=== PATIENT | male | born 1930 | race Caucasian/White ===

== ENCOUNTER 2017-06-26 18:51 | Inpatient (IN) | payer MEDICARE, MEDICAID ==
--- NOTE | 2017-06-26 19:19 | ED PDOC ---
Arrival/HPI - General Chief Complaint: Shortness Of Breath Time Seen by Provider: 06/26/17 19:02 Historian: Patient - History of Present Illness Narrative History of Present Illness (Text): 06/26/17 19:17 86 year old male, with past medical history of asthma and hypertension, presents to the Emergency department complaining of shortness of breath for past few days. Patient is a poor historian aPatient denies any associated chest pain. Patient denies any fever, chills, nausea, vomiting, diarrhea, abdominal pain or any other complaints. 06/27/17 02:30 Time/Duration: < week Symptom Course: Unchanged Activities at Onset: Light Context: Home Past Medical History - Provider Review Nursing Documentation Reviewed: Yes - Infectious Disease Hx of Infectious Diseases: None - Cardiac Hx Hypertension: Yes - Pulmonary Hx Asthma: Yes - Psychiatric Hx Substance Use: No Family/Social History - Physician Review Nursing Documentation Reviewed: Yes Family/Social History: No Known Family HX Smoking Status: Former Smoker Hx Alcohol Use: No Hx Substance Use: No Allergies/Home Meds Allergies/Adverse Reactions: Allergies No Known Allergies Allergy (Verified 06/26/17 18:56) Home Medications: Home Meds Medication Instructions Recorded Confirmed Atorvastatin [Lipitor] 10 mg PO DAILY 06/26/17 06/26/17 Fluticasone/Vilanterol [Breo 1 in IH BID 06/26/17 06/26/17 Ellipta 200-25 Mcg INH] Metoprolol Tartrate [Metoprolol 25 mg PO BID 06/26/17 06/26/17 Tartrate] Montelukast [Singulair] 10 mg PO DAILY 06/26/17 06/26/17 Multivitamin/Iron/Folic Acid 1 tab PO DAILY 06/26/17 06/26/17 [Sentry Tablet] Review of Systems - Physician Review All systems were reviewed & negative as marked: Yes - Review of Systems Constitutional: Normal. absent: Fevers Eyes: Normal ENT: Normal Respiratory: SOB Cardiovascular: Normal. absent: Chest Pain Gastrointestinal: Normal. absent: Abdominal Pain, Diarrhea, Nausea, Vomiting Genitourinary Male: Normal Musculoskeletal: Normal Skin: Normal Neurological: Normal Endocrine: Normal Hemo/Lymphatic: Normal Psychiatric: Normal Physical Exam Vital Signs Reviewed: Yes Vital Signs Temp Pulse Pulse Resp BP Pulse Ox 06/26/17 23:37 98.1 F 82 18 132/70 98 06/26/17 23:02 90 20 06/26/17 20:42 90 22 120/63 96 06/26/17 19:05 30 H 06/26/17 18:52 97.6 F 86 35 H 127/68 100 Temperature: Afebrile Blood Pressure: Normal Pulse: Regular Respiratory Rate: Tachypneic Appearance: Positive for: Well-Appearing, Non-Toxic, Comfortable Pain Distress: None Mental Status: Positive for: Alert and Oriented X 3 - Systems Exam Head: Present: Atraumatic, Normocephalic Pupils: Present: PERRL Extroacular Muscles: Present: EOMI Conjunctiva: Present: Normal Mouth: Present: Moist Mucous Membranes Neck: Present: Normal Range of Motion Respiratory/Chest: Present: Decreased Breath Sounds (bilaterally and symmetrically). No: Respiratory Distress, Accessory Muscle Use Cardiovascular: Present: Regular Rate and Rhythm, Normal S1, S2. No: Murmurs Abdomen: No: Tenderness, Distention, Peritoneal Signs Back: Present: Normal Inspection Upper Extremity: Present: Normal Inspection. No: Cyanosis, Edema Lower Extremity: Present: Normal Inspection. No: Edema Neurological: Present: GCS=15, CN II-XII Intact, Speech Normal Skin: Present: Warm, Dry, Normal Color. No: Rashes Psychiatric: Present: Alert, Oriented x 3, Normal Insight, Normal Concentration Medical Decision Making ED Course and Treatment: 06/26/17 19:00 Impression: 86 year old male presents to the Emergency department for shortness of breath. Plan: -- EKG -- Labs -- Chest X-ray -- Albuterol -- Solumedrol -- Urinalysis -- Reassess and disposition Progress Notes: 06/26/17 19:00 EKG: Ordered, reviewed, and independently interpreted the EKG. Rate : 89 BPM Rhythm : NSR Interpretation : No ST-segment elevations or depressions, no T-wave inversions, normal intervals. CT Angiography Chest With Intravenous Contrast EXAM DATE/TIME: 06/26/2017 8:14 PM Dictated and Authenticated by: Laith Ramirez MD 06/26/2017 9:43 PM Eastern Time ([place] & [place]) IMPRESSION: 1. The main pulmonary trunk, right/left main pulmonary arteries, and the proximal lobar branches demonstrate no definite intraluminal filling defect to suggest pulmonary embolism. There is heterogeneous density of scattered peripheral pulmonary arterial branches limits evaluation for a peripheral pulmonary embolism, which is likely contributed by artifact. 2. Severe emphysematous changes are identified bilaterally, which are predominantly centrilobular. 3. There is a small consolidation within the right lower lobe, suggestive of atelectatic change or infiltrate. 4. Scattered lung nodules are noted above, the largest is 1.3 cm within the left lower lobe. PET/CT is recommended to exclude malignancy. 5. There is heterogenous enhancement of the left internal jugular vein, likely due to the phase of injection. Thrombosis is considered less likely. This can be confirmed with ultrasound. 6. There is a mildly enlarged precarinal lymph node measuring 1.5 x 1.2 cm. Small right hilar lymph nodes are also seen. 7. Multiple hypodense hepatic lesions are visualized. These lesions are incompletely characterized without intravenous contrast. Metastatic lesions are the diagnosis of exclusion. 8. There is mild nodular thickening of the right adrenal gland. 9. Additional CT findings described above. 06/26/17 21:50: Case discussed with medical office specialist. Dr. Rashaun epps. 06/26/17 21:55: Case discussed in detail with Dr. Rashaun Laguerre. Accepts patient to her service. - Lab Interpretations Lab Results: 06/26/17 19:18 06/26/17 19:18 Lab Results 06/26/17 19:18: Sodium 144, Chloride 102, Potassium 4.9, Carbon Dioxide 35 H, Anion Gap 12, BUN 31 H, Creatinine 1.3, Est GFR ( Amer) > 60, Est GFR ( Non-Af Amer) 52, Random Glucose 140 H, Calcium 9.7, Magnesium 2.0, Total Bilirubin 0.4, AST 57, ALT 25, Alkaline Phosphatase 59, Lactate Dehydrogenase 591, Total Creatine Kinase 76, Troponin I < 0.01, NT-Pro-B Natriuret Pep 364, Total Protein 8.0, Albumin 4.0, Globulin 4.0, Albumin/Globulin Ratio 1.0 L 06/26/17 19:18: PT 11.9, INR 1.04, APTT 26.2 06/26/17 19:18: WBC 6.7, RBC 4.67, Hgb 12.0 L, Hct 40.2 L, MCV 86.1, MCH 25.7, MCHC 29.9 L, RDW 14.1, Plt Count 249, MPV 11.0, Gran % 76.1 H, Lymph % (Auto) 13.3 L, [place] % (Auto) 9.7 H, Eos % (Auto) 0.6 L, Baso % (Auto) 0.3, Gran # 5.09 , Lymph # (Auto) 0.9 L, [place] # (Auto) 0.7 H, Eos # (Auto) 0.0, Baso # (Auto) 0.02 06/26/17 11:55: pCO2 54 H, pO2 147.0 H, HCO3 29.1 H, ABG pH 7.34 L, ABG Total CO2 30.8 H, ABG O2 Saturation 99.0 H, ABG Base Excess 2.2, ABG Potassium 4.2, Sodium 142.0, Chloride 109.0 H, Glucose 134 H, Lactate 0.8, FiO2 32.0, Arterial Blood Potassium 4.2 - RAD Interpretation Radiology Orders: 06/26/17 19:09 CHEST PORTABLE [RAD] Stat 06/26/17 20:14 ANGIO CHEST PE PROTOCOL [CT] Stat - Medication Orders Current Medication Orders: Acetaminophen (Tylenol 325mg Tab) 650 mg PO Q6H PRN PRN Reason: Fever >100.4 F Albuterol/Ipratropium (Duoneb 3 Mg/0.5 Mg (3 Ml) Ud) 3 ml IH Q2H PRN PRN Reason: Shortness of Breath Last Admin: 06/27/17 00:30 Dose: 3 ml Albuterol/Ipratropium (Duoneb 3 Mg/0.5 Mg (3 Ml) Ud) 3 ml IH [id number] GUERO Aspirin (Aspirin Chewable) 81 mg PO DAILY [facility] Atorvastatin Calcium (Lipitor) 10 mg PO DAILY [facility] Heparin Sodium (Porcine) (Heparin) 5,000 units SC Q12 GUERO PRN Reason: Protocol Sodium Chloride (Sodium Chloride 0.9%) 1,000 mls @ 80 mls/hr IV .[id number] GUERO Last Admin: 06/26/17 23:12 Dose: 80 mls/hr eMAR Start Stop Document 06/26/17 23:12 IT (Rec: 06/26/17 23:13 IT [facility] [id number]) Intravenous Solution Start Date 06/26/17 Start Time 23:12 Ceftriaxone Sodium (Rocephin 1 Gram Ivpb) 1 gm in 100 mls @ 100 mls/hr IVPB DAILY GUERO PRN Reason: Protocol Azithromycin (Zithromax 500mg In Ns) 500 mg in 250 mls @ 167 mls/hr IVPB DAILY GU[facility] PRN Reason: Protocol Methylprednisolone (Solu-Medrol) 40 mg IVP Q12 GUERO Metoprolol Tartrate (Lopressor) 25 mg PO BID GU[facility] Montelukast Sodium (Singulair) 10 mg PO DAILY [facility] Multivitamins (Thera Tab) 1 tab PO DAILY [facility] Pantoprazole Sodium (Protonix Ec Tab) 40 mg PO 0600 GUERO Discontinued Medications Albuterol/Ipratropium (Duoneb 3 Mg/0.5 Mg (3 Ml) Ud) 3 ml IH Q15M GUERO Stop: 06/26/17 19:46 Last Admin: 06/26/17 19:48 Dose: 3 ml Ceftriaxone Sodium (Rocephin 1 Gram Ivpb) 1 gm in 100 mls @ 100 mls/hr IVPB STAT STA PRN Reason: Protocol Stop: 06/26/17 22:43 Last Admin: 06/26/17 23:12 Dose: 100 mls/hr eMAR Start Stop Document 06/26/17 23:12 IT (Rec: 06/26/17 23:12 IT [facility] [id number]) Intravenous Solution Start Date 06/26/17 Start Time 23:12 End Date 06/26/17 Azithromycin (Zithromax 500mg In Ns) 500 mg in 250 mls @ 167 mls/hr IVPB STAT STA PRN Reason: Protocol Stop: 06/26/17 23:14 Last Admin: 06/26/17 23:54 Dose: Methylprednisolone (Solu-Medrol) 125 mg IVP STAT STA Stop: 06/26/17 19:10 Last Admin: 06/26/17 19:27 Dose: 125 mg IVP Administration Document 06/26/17 19:27 IT (Rec: 06/26/17 19:27 IT [facility] [id number]) Charges for Administration # of IVP Administrations 1 - Scribe Statement The provider has reviewed the documentation as recorded by the Scribe Adama Ley. All medical record entries made by the Scribe were at my direction and personally dictated by me. I have reviewed the chart and agree that the record accurately reflects my personal performance of the history, physical exam, medical decision making, and the department course for this patient. I have also personally directed, reviewed, and agree with the discharge instructions and disposition. Disposition/Present on Arrival - Present on Arrival Any Indicators Present on Arrival: No History of DVT/PE: No History of Uncontrolled Diabetes: No Urinary Catheter: No History of Decub. Ulcer: No History Surgical Site Infection Following: None - Disposition Have Diagnosis and Disposition been Completed?: Yes Diagnosis: Asthma, Left against medical advice Disposition: HOSPITALIZED Disposition Time: 20:07 Patient Problems: Current Active Problems Problem Status Onset Asthma Acute Left against medical advice Acute Condition: UNKNOWN
[2017-06-26] MEDS: Albuterol-Ipratrop 3 mg / 0.5 (3 ml) UD IH SCH ×3 (19:27→19:48)
[2017-06-26 19:37] LABS: BASO # 0.02 K/mm3 (0.0-2.0); BASO % 0.3 % (0.0-3.0); EOS % 0.6 % (1.5-5.0); GRAN # 5.09 (1.4-6.5); GRAN % 76.1 % (50.0-68.0); LYMPH # 0.9 (1.2-3.4); LYMPH % 13.3 % (22.0-35.0); MEAN CELL VOLUME 86.1 fl (80.0-105.0); MEAN CORPUSCULAR HEMOGLOBIN 25.7 pg (25.0-35.0); MEAN CORPUSCULAR HGB CONC 29.9 g/dl (31.0-37.0); MONO # 0.7 (0.1-0.6); MONO % 9.7 % (1.0-6.0); RBC 4.67 10^6/uL (3.5-6.1); RED CELL DISTRIBUTION WIDTH 14.1 % (11.5-14.5); WHITE BLOOD COUNT 6.7 10^3/ul (4.5-11.0)
[2017-06-26 19:42] LABS: CALCIUM 9.7 mg/dL (8.4-10.5); GFR AFRICAN-AMERICAN > 60; GFR NON-AFRICAN AMERICAN 52
[2017-06-26 19:48] LABS: ALT/SGPT 25 U/L (7-56); AST/SGOT 57 U/L (17-59); BLOOD UREA NITROGEN 31 mg/dL (7-21)
[2017-06-26 20:00] LABS: B-TYPE NATRIURETIC PEPTIDE 364 pg/mL (0-450); TROPONIN I < 0.01 ng/mL
[2017-06-26 20:14] LABS: INR 1.04 (0.93-1.08); PARTIAL THROMBOPLASTIN TIME 26.2 Seconds (25.1-36.5); PROTHROMBIN TIME 11.9 SECONDS (9.4-12.5)
[2017-06-26] MEDS ORDERED: Iohexol 350 MG/100 ML VIAL ONE (20:24)
--- NOTE | 2017-06-26 21:43 | CT ---
EXAM: CT Angiography Chest With Intravenous Contrast EXAM DATE/TIME: 06/26/2017 8:14 PM CLINICAL HISTORY: The patient age is 86 years old and is male; Signs and symptoms; Shortness of breath; Additional info: [facility] [place] Facility exam id and description: Ct count includes the [facility] angio chest pe protocol TECHNIQUE: Axial computed tomographic angiography images of the chest with intravenous contrast using pulmonary embolism protocol. All CT scans at this facility use one or more dose reduction techniques, viz.: automated exposure control; ma/kV adjustment per patient size (including targeted exams where dose is matched to indication; i.e. head); or iterative reconstruction technique. MIP reconstructed images were created and reviewed. Coronal and sagittal reformatted images were created and reviewed. CONTRAST: 55 mL of LEXI administered intravenously. COMPARISON: - CHEST PORTABLE 2017-06-26 19:21 FINDINGS: Pulmonary arteries: The main pulmonary trunk, right/left main pulmonary arteries, and the proximal lobar branches demonstrate no definite intraluminal filling defect to suggest pulmonary embolism. There is heterogeneous density of scattered peripheral pulmonary arterial branches limits evaluation for a peripheral pulmonary embolism, which is likely contributed by artifact. Aorta: There is atherosclerosis of the visualized aorta. There is no aneurysm or dissection of the aorta. Other veins: There is heterogenous enhancement of the left internal jugular vein, likely due to the phase of injection. Thrombosis is considered less likely. Lungs: Severe emphysematous changes are identified bilaterally, which are predominantly centrilobular. There is a small consolidation within the right lower lobe, suggestive of atelectatic change or infiltrate. Nonspecific patchy groundglass density is visualized within the lungs. There is a 2 mm nodule within the superior segment of the right lower lobe on series 3 image 48. Within the left lower lobe on series 3 image 77, there is a 5 mm nodule. There is a cluster of additional nodules within the left lower lobe, the largest measuring 1.3 cm on series 3 image 72. Pleural space: No significant effusion. No pneumothorax. Heart: No cardiomegaly. No significant pericardial effusion. No evidence of RV dysfunction. Bones/joints: Sternotomy wires are visualized. There is increased kyphosis of the thoracic spine with scoliosis. Hypertrophic degenerative changes are noted within the spine. Lymph nodes: There is a mildly enlarged precarinal lymph node measuring 1.5 x 1.2 cm. Additional scattered mediastinal lymph nodes are visualized. Small right hilar lymph nodes are also seen. Liver: Multiple hypodense hepatic lesions are visualized. These lesions are incompletely characterized without intravenous contrast. Metastatic lesions are the diagnosis of exclusion. Adrenals: There is mild nodular thickening of the right adrenal gland. Kidneys and ureters: Hypodense probable bilateral renal cysts are visualized, with parenchymal scarring in the left side. IMPRESSION: 1. The main pulmonary trunk, right/left main pulmonary arteries, and the proximal lobar branches demonstrate no definite intraluminal filling defect to suggest pulmonary embolism. There is heterogeneous density of scattered peripheral pulmonary arterial branches limits evaluation for a peripheral pulmonary embolism, which is likely contributed by artifact. 2. Severe emphysematous changes are identified bilaterally, which are predominantly centrilobular. 3. There is a small consolidation within the right lower lobe, suggestive of atelectatic change or infiltrate. 4. Scattered lung nodules are noted above, the largest is 1.3 cm within the left lower lobe. PET/CT is recommended to exclude malignancy. 5. There is heterogenous enhancement of the left internal jugular vein, likely due to the phase of injection. Thrombosis is considered less likely. This can be confirmed with ultrasound. 6. There is a mildly enlarged precarinal lymph node measuring 1.5 x 1.2 cm. Small right hilar lymph nodes are also seen. 7. Multiple hypodense hepatic lesions are visualized. These lesions are incompletely characterized without intravenous contrast. Metastatic lesions are the diagnosis of exclusion. 8. There is mild nodular thickening of the right adrenal gland. 9. Additional CT findings described above.
[2017-06-26] MEDS ORDERED: cefTRIAXone 1 gm 1 GM/100 ML BAG IVPB STA (21:44)
[2017-06-26] MEDS ORDERED: Azithromycin 500MG/NS 250ml 500 MG/250 ML BAG IVPB STA (21:45)
[2017-06-26] MEDS ORDERED: Sodium Chloride 0.9% 1,000 ML IV SCH (22:45)
--- NOTE | 2017-06-26 22:55 | CP.PCM.HP ---
<Jeremiah Hendrickson - Last Filed: 06/27/17 00:02> History of Present Illness - History of Present Illness History of Present Illness: CC: shortness of breath Pt is an 86 yo M with PMH of CVA, CAD, and asthma presents to [facility] [place] due to a one day history of worsening shortness of breath. Pt is [place] speaking, family is at bedside to provide translation. Pt states that at rest he is not short of breath, but can only walk a few steps before becoming short of breath. Pt is on 2L of oxygen at home. Pt states that he occasionally has night time symptoms of dyspnea and cough, but not daily. Pt states that over the last day the dyspnea has worsened and has had a dry cough. Pt denied any recent travel or sick contacts. Pt's last admission to a healthcare facility was about [address] [facility] for pneumonia and asthma exacerbation. Pt denied CP, n /v/d, abdominal pain, fever, chills, PRIDE, dizziness, urinary symptoms or changes in BM. 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 Medications as per MAR Present on Admission - Present on Admission Any Indicators Present on Admission: No Review of Systems - Review of Systems Review of Systems: 12 point ROS reviewed and is negative other than what is stated in HPI. Past Patient History - Infectious Disease Hx of Infectious Diseases: None - Past Social History Smoking Status: Former Smoker - CARDIAC Hx Hypertension: Yes - PULMONARY Hx Asthma: Yes - PSYCHIATRIC Hx Substance Use: No Meds Home Medications: Home Medication List Medication Instructions Recorded Confirmed Type Albuterol 0.083% [Albuterol 0.083% 2.5 mg IH Q4 PRN #20 neb 06/26/17 Rx Inhal Shanda (2.5 mg/3 ml) UD] Prednisone 50 mg PO DAILY #5 tablet 06/26/17 Rx Albuterol/Ipratropium [Duoneb 3 3 ml IH Q4 PRN 30 Days #120 neb 06/30/17 Rx mg/0.5 mg (3 ml) UD] Arformoterol [Brovana] 15 mcg IH [id number] #60 neb 06/30/17 Rx Lisinopril [Zestril] 2.5 mg PO DAILY #30 tab 06/30/17 Rx predniSONE [Prednisone] See Taper PO DAILY #5 tab 06/30/17 Rx Allergies/Adverse Reactions: Allergies Allergy/AdvReac Type Severity Reaction Status Date / Time No Known Allergies Allergy Verified 06/26/17 18:56 Physical Exam - Constitutional Appears: No Acute Distress, Cachectic - Head Exam Head Exam: NORMAL INSPECTION - Eye Exam Eye Exam: Normal appearance - ENT Exam ENT Exam: Mucous Membranes Moist - Neck Exam Neck exam: Positive for: Normal Inspection - Respiratory Exam Respiratory Exam: Decreased Breath Sounds. absent: Clear to Auscultation Bilateral, Rales, Rhonchi, Wheezes, Respiratory Distress - Cardiovascular Exam Cardiovascular Exam: Tachycardia, +S1, +S2. absent: Diastolic murmur, Gallop, Rubs, Systolic Murmur - GI/Abdominal Exam GI & Abdominal Exam: Soft. absent: Distended, Guarding, Rebound, Tenderness - Extremities Exam Extremities exam: Positive for: normal inspection - Back Exam Back exam: NORMAL INSPECTION - Neurological Exam Neurological exam: Alert, CN II-XII Intact, Oriented x3 - Psychiatric Exam Psychiatric exam: Normal Affect, Normal Mood - Skin Skin Exam: Dry, Intact, Normal Color, Warm Results - Vital Signs Recent Vital Signs: Last Vital Signs Temp 97.6 F 06/26/17 18:52 Pulse 90 06/26/17 20:42 Resp 22 06/26/17 20:42 BP 120/63 06/26/17 20:42 Pulse Ox 96 06/26/17 20:42 - Labs Result Diagrams: 06/26/17 19:18 06/26/17 19:18 Assessment & Plan - Assessment and Plan (Free Text) Assessment: 86 yo M with PMH of CVA, CAD, and asthma admitted for asthma exacerbation and possible pneumonia. Plan: 1. Asthma exacerbation - EKG showed NSR, rate 89 - Duoneb sabino and prn - Solumedrol 40 mg q12h - O2 via NC - ABG ordered - Cont singulair - Pulm consult 2. Possible community acquired pneumonia - Afebrile, no leukocytosis - CXR showed possible infiltrate RLL - Chest CT negative for PE, showed severe emphysematous changes, small consolidation in RLL possible atelectasis vs infectious, lung nodule 1.3 cm in left lower lobe, and 1.5x1.2 cm precarinal lymph node - Procal ordered - Due to chronic steroids, immunocompromised workup ordered Strep pneumo antigen, CMV AB, cryptococcus, histoplasma, HHV6, legionella ESR, CRP, LDH - Cont ceftriaxone and azithromycin 3. CAD - Echo ordered - Cont ASA, Lipitor, and Lopressor 4. Prerenal nephropathy - Likely 2/2 dehydration - NS at 80 cc/hr - Can increase maintenance fluids pending echo GI/DVT PPx - Protonix - Heparin Pt seen and discussed in detail with Dr. Laguerre. Lucho Hendrickson, PGY1 <Otilia Laguerre - Last Filed: 07/01/17 20:04> Results - Vital Signs Recent Vital Signs: Last Vital Signs Temp 98.6 F 06/30/17 12:00 Pulse 93 H 06/30/17 12:00 Resp 20 06/30/17 12:00 BP 129/59 L 06/30/17 12:00 Pulse Ox 97 06/30/17 10:12 - Labs Result Diagrams: 06/30/17 05:30 06/30/17 05:30 Labs: Laboratory Results - last 24 hr 06/27/17 06/27/17 06:30 06:30 Cryptococcus Ab <1:2 Herpesvirus 6 IgG Ab 1:20 H Herpesvirus 6 IgM Ab <1:20 Herpesvirus 6 Interp Past infection
[2017-06-27] MEDS: Albuterol-Ipratrop 3 mg / 0.5 (3 ml) UD IH PRN ×2 (00:30→11:15)
[2017-06-27 00:37] LABS: ARTERIAL BLOOD GAS HCO3 29.1 mmol/L (21-28); ARTERIAL BLOOD GAS PCO2 54 mm/Hg (35-45); ARTERIAL BLOOD GAS PH 7.34 (7.35-7.45); ARTERIAL BLOOD GAS TCO2 30.8 mmol.L (22-28)
[2017-06-27 02:19] LABS: PH,URINE 5.5 (4.7-8.0); URINE BILIRUBIN NEGATIVE (NEGATIVE); URINE BLOOD LARGE (NEGATIVE); URINE GLUCOSE (UA) NEGATIVE (NEGATIVE); URINE LEUKOCYTE ESTERASE NEGATIVE Leu/uL (NEGATIVE); URINE PROTEIN 100 mg/dL (<30 mg/dL); URINE UROBILINOGEN 0.2 E.U./dL (<1 E.U./dL)
[2017-06-27 02:21] LABS: URINE APPEARANCE SL CLOUDY (CLEAR); URINE COLOR YELLOW (YELLOW)
[2017-06-27] MEDS: Albuterol-Ipratrop 3 mg / 0.5 (3 ml) UD IH SCH ×4 (02:45→19:02)
[2017-06-27 03:12] LABS: URINE BACTERIA FEW (NEG); URINE EPITHELIAL CELLS 0 - 2 /hpf (0-5); URINE RBC TNTC /hpf (0-2)
[2017-06-27] MEDS: Pantoprazole 40 mg EC Tab PO SCH (05:26)
[2017-06-27 07:21] LABS: HEMOGLOBIN 10.9 g/dL (14.0-18.0); MEAN CELL VOLUME 85.3 fl (80.0-105.0); MEAN CORPUSCULAR HEMOGLOBIN 25.8 pg (25.0-35.0); MEAN CORPUSCULAR HGB CONC 30.2 g/dl (31.0-37.0); MEAN PLATELET VOLUME 11.1 fl (7.0-11.0); RBC 4.23 10^6/uL (3.5-6.1); WHITE BLOOD COUNT 9.9 10^3/ul (4.5-11.0)
[2017-06-27 07:33] LABS: ALBUMIN 3.6 g/dL (3.0-4.8); ALT/SGPT 30 U/L (7-56); AST/SGOT 31 U/L (17-59); BLOOD UREA NITROGEN 31 mg/dL (7-21); CALCIUM 9.2 mg/dL (8.4-10.5); GFR AFRICAN-AMERICAN > 60; GFR NON-AFRICAN AMERICAN 57
--- NOTE | 2017-06-27 08:38 | RAD ---
HISTORY: sob COMPARISON: No prior. FINDINGS: LUNGS: Interstitial changes are seen at both lung bases. PLEURA: No significant pleural effusion identified, no pneumothorax apparent. CARDIOVASCULAR: Normal. OSSEOUS STRUCTURES: Sternal wires VISUALIZED UPPER ABDOMEN: Normal. OTHER FINDINGS: None. IMPRESSION: No active disease.
[2017-06-27] MEDS ORDERED: cefTRIAXone 1 gm 1 GM/100 ML BAG IVPB SCH (10:00)
[2017-06-27] MEDS: Azithromycin 500MG/NS 250ml 500 MG/250 ML BAG IVPB SCH (10:11)
[2017-06-27] MEDS: Multivitamin Therapeutic Tab PO SCH (10:11)
[2017-06-27] MEDS: MethylPREDNISolone 40 mg Vial IVP SCH ×2 (10:11→21:24)
--- NOTE | 2017-06-27 15:57 | CARD ---
APPROVED REPORT EXAM: Two-dimensional and M-mode echocardiogram with Doppler and color Doppler. INDICATION Evaluate LV function 2D DIMENSIONS Left Atrium (2D)2.6 (1.6-4.0cm)IVSd0.8 (0.7-1.1cm) Aortic Root (2D)2.7 (2.0-3.7cm)LVDd3.1 (3.9-5.9cm) LVOT Diameter1.7 (1.8-2.4cm)PWd0.8 (0.7-1.1cm) LVDs1.8 (2.5-4.0cm)FS (%) 40.9 % LVEF (%)73.2 (>50%) Aortic Valve AoV Peak Xsynawsg421.0cm/sAoV VTI39.3cmAO Peak GR.20mmHg LVOT Peak Utkpudef735.0cm/sLVOT VTI22.30cmAO Mean GR.11mmHg HARSH (VMAX)1.17kt9PMB (VTI)1.29cm2 Mitral Valve MV E Rkohskxu50.7cm/sMV A Ubsrtnva987.0cm/sE/A ratio0.5 TDI Lateral E' Peak V7.31cm/sMedial E' Peak V6.53cm/sE/Lateral E'11.3 E/Medial E'12.7 Tricuspid Valve TR Peak Ljtltgjs313sz/sRAP NGIPFNMD6fmCuIN Peak Gr.32mmHg [id number] LEFT VENTRICLE The left ventricle is normal size. There is normal left ventricular wall thickness. The left ventricular ejection fraction is within the normal range. Mild septal hypokinesis Transmitral Doppler flow pattern is Grade I-abnormal relaxation pattern. RIGHT VENTRICLE The right ventricle is normal size. There is normal right ventricular wall thickness. The right ventricular systolic function is normal. ATRIA The left atrium size is normal. The right atrium size is normal. AORTIC VALVE The aortic valve is moderately sclerotic. There is trace valvular aortic stenosis. MITRAL VALVE The mitral valve is mildly thickened. There is no mitral valve regurgitation noted. There is no mitral valve stenosis. TRICUSPID VALVE There is mild pulmonary hypertension. GREAT VESSELS The aortic root is normal in size. <Conclusion> The left ventricle is normal size. There is normal left ventricular wall thickness. The left ventricular ejection fraction is within the normal range. Mild septal hypokinesis Transmitral Doppler flow pattern is Grade I-abnormal relaxation pattern. The aortic valve is moderately sclerotic. There is mild pulmonary hypertension.
--- NOTE | 2017-06-27 16:08 | CARD ---
APPROVED REPORT EKG Measurement Heart [id number] <Conclusion> Normal sinus rhythm Low voltage QRS Borderline ECG
[2017-06-28] MEDS: Albuterol-Ipratrop 3 mg / 0.5 (3 ml) UD IH SCH ×6 (01:10→23:42)
[2017-06-28] MEDS: Albuterol-Ipratrop 3 mg / 0.5 (3 ml) UD IH PRN (05:10)
[2017-06-28] MEDS: Pantoprazole 40 mg EC Tab PO SCH (05:10)
[2017-06-28 07:38] LABS: HEMOGLOBIN 10.5 g/dL (14.0-18.0); MEAN CORPUSCULAR HEMOGLOBIN 25.2 pg (25.0-35.0); MEAN PLATELET VOLUME 11.2 fl (7.0-11.0); RBC 4.16 10^6/uL (3.5-6.1); RED CELL DISTRIBUTION WIDTH 14.4 % (11.5-14.5); WHITE BLOOD COUNT 18.1 10^3/ul (4.5-11.0)
[2017-06-28 08:00] LABS: ALBUMIN 3.7 g/dL (3.0-4.8); ALT/SGPT 38 U/L (7-56); AST/SGOT 40 U/L (17-59); BLOOD UREA NITROGEN 35 mg/dL (7-21); CALCIUM 9.2 mg/dL (8.4-10.5); GFR AFRICAN-AMERICAN > 60; GFR NON-AFRICAN AMERICAN 57
[2017-06-28] MEDS ORDERED: Albuterol-Ipratrop 3 mg / 0.5 (3 ml) UD IH SCH (09:15)
[2017-06-28] MEDS ORDERED: Albuterol-Ipratrop 3 mg / 0.5 (3 ml) UD IH STA (09:18)
[2017-06-28] MEDS: Multivitamin Therapeutic Tab PO SCH (09:30)
[2017-06-28] MEDS: Azithromycin 500MG/NS 250ml 500 MG/250 ML BAG IVPB SCH (09:31)
[2017-06-28] MEDS: MethylPREDNISolone 40 mg Vial IVP SCH ×2 (09:31→17:53)
[2017-06-28] MEDS ORDERED: MethylPREDNISolone 40 mg Vial IVP SCH ×2 (10:00)
[2017-06-28 11:34] LABS: ARTERIAL BLOOD GAS HCO3 29.1 mmol/L (21-28); ARTERIAL BLOOD GAS HEMOGLOBIN 9.8 g/dL (11.7-17.4); ARTERIAL BLOOD GAS O2 CAPACITY 13.7 mL/dl (16-24); ARTERIAL BLOOD GAS O2 CONTENT 13.6 ML/dl (15-23); ARTERIAL BLOOD GAS O2 SAT 99.3 % (95-98); ARTERIAL BLOOD GAS PCO2 62 mm/Hg (35-45); ARTERIAL BLOOD GAS PH 7.28 (7.35-7.45)
--- NOTE | 2017-06-28 12:08 | CP.PCM.PN ---
<Jonathan Aguillon - Last Filed: 06/28/17 14:38> Subjective - Date & Time of Evaluation Date of Evaluation: 06/28/17 Time of Evaluation: 09:10 - Subjective Subjective: Jonathan Aguillon DO, PGY-1: Hospitalist Service Patient seen and examined at bedside. Video die cast supervisor service utilized. Patient was in apparent respiratory distress at the time of evaluation. Nurse reports he had just passed a large bowel movement and was straining. Patient can barely get one or two word across. Stat Duoneb and ABG ordered. Objective - Vital Signs/Intake and Output Vital Signs (last 24 hours): Temp Pulse Resp BP Pulse Ox 98.1 F 110 H 19 133/69 97 06/28/17 06:00 06/28/17 09:30 06/28/17 06:00 06/28/17 09:30 06/28/17 06:00 Intake and Output: 06/28/17 06/28/17 06:59 18:59 Intake Total 240 Output Total 300 Balance -60 - Medications Medications: Current Medications Acetaminophen (Tylenol 325mg Tab) 650 mg PO Q6H PRN PRN Reason: Fever >100.4 F Albuterol/Ipratropium (Duoneb 3 Mg/0.5 Mg (3 Ml) Ud) 3 ml IH Q2H PRN PRN Reason: Shortness of Breath Last Admin: 06/28/17 05:10 Dose: 3 ml Albuterol/Ipratropium (Duoneb 3 Mg/0.5 Mg (3 Ml) Ud) 3 ml IH [id number] [facility] Last Admin: 06/28/17 11:20 Dose: 3 ml Aspirin (Aspirin Chewable) 81 mg PO DAILY [facility] Last Admin: 06/28/17 09:30 Dose: 81 mg Atorvastatin Calcium (Lipitor) 10 mg PO DAILY [facility] Last Admin: 06/28/17 09:30 Dose: 10 mg Heparin Sodium (Porcine) (Heparin) 5,000 units SC Q12 [facility] PRN Reason: Protocol Last Admin: 06/28/17 09:30 Dose: 5,000 units Azithromycin (Zithromax 500mg In Ns) 500 mg in 250 mls @ 167 mls/hr IVPB DAILY [facility] PRN Reason: Protocol Last Admin: 06/28/17 09:31 Dose: 167 mls/hr Methylprednisolone (Solu-Medrol) 40 mg IVP BID [facility] Last Admin: 06/28/17 09:31 Dose: 40 mg Metoprolol Tartrate (Lopressor) 25 mg PO BID [facility] Last Admin: 06/28/17 09:30 Dose: 25 mg Montelukast Sodium (Singulair) 10 mg PO DAILY [facility] Last Admin: 06/28/17 09:30 Dose: 10 mg Multivitamins (Thera Tab) 1 tab PO DAILY [facility] Last Admin: 06/28/17 09:30 Dose: 1 tab Pantoprazole Sodium (Protonix Ec Tab) 40 mg PO 0600 [facility] Last Admin: 06/28/17 05:10 Dose: 40 mg - Labs Labs: 06/28/17 07:31 06/28/17 07:31 PT 11.9 SECONDS (9.4-12.5) 06/26/17 19:18 INR 1.04 (0.93-1.08) 06/26/17 19:18 APTT 26.2 Seconds (25.1-36.5) 06/26/17 19:18 - Constitutional Appears: In Acute Distress, Cachectic - Head Exam Head Exam: ATRAUMATIC, NORMOCEPHALIC - Eye Exam Eye Exam: EOMI, Normal appearance - ENT Exam ENT Exam: Mucous Membranes Dry, Normal Oropharynx - Neck Exam Neck Exam: Normal Inspection - Respiratory Exam Respiratory Exam: Accessory Muscle Use, Prolonged Expiratory Phase, Respiratory Distress - Cardiovascular Exam Cardiovascular Exam: Tachycardia, +S1, +S2 - GI/Abdominal Exam GI & Abdominal Exam: Soft, Normal Bowel Sounds - Extremities Exam Extremities Exam: Normal Inspection. absent: Calf Tenderness - Back Exam Back Exam: NORMAL INSPECTION. absent: CVA tenderness (L), CVA tenderness (R) - Neurological Exam Neurological Exam: Alert, Awake - Psychiatric Exam Psychiatric exam: Normal Affect, Normal Mood - Skin Skin Exam: Normal Color Assessment and Plan - Assessment and Plan (Free Text) Assessment: 86 year old male with past medical history significant for advanced age, COPD and CAD who presented with worsening dyspnea. Plan: COPD exacerbation with hypercapnia and muscle wasting - Duonebs q4h [facility] q2h PRN - Solumedrol 40 mg q12h - BIPAP with target oxygen saturation between 88-92% - Ceftriaxone discontinued given no evidence of pneumonia, procalcitonin low, and patient afebrile - Azithromycin 500 mg daily - Ensure clear supplement 3 daily - urine legionella negative - CT scan of chest was concerning for possible cancer with unknown primary. Discussed findings with family who did not wish to pursue any work up at this time in regards to possible cancer given patient's poor functional status. - Pulmonology consulted, would re-consult on Thursday - Multivitamin - Singulair 10 mg - TATIANNA index indicates poor prognosis 2) CAD - Echocardiogram showed LVEF of 74%, mild septal hypokinesis, and mild pulmonary hypertension - Cont ASA, Lipitor, and Lopressor 3) GI/DVT prophylaxis - Protonix - Heparin <Rory Jenkins - Last Filed: 06/28/17 15:58> Objective - Vital Signs/Intake and Output Vital Signs (last 24 hours): Temp Pulse Resp BP Pulse Ox 98 F 98 H 19 142/76 97 06/28/17 12:00 06/28/17 14:00 06/28/17 12:00 06/28/17 12:00 06/28/17 06:00 Intake and Output: 06/28/17 06/28/17 06:59 18:59 Intake Total 240 610 Output Total 300 Balance -60 610 - Medications Medications: Current Medications Acetaminophen (Tylenol 325mg Tab) 650 mg PO Q6H PRN PRN Reason: Fever >100.4 F Albuterol/Ipratropium (Duoneb 3 Mg/0.5 Mg (3 Ml) Ud) 3 ml IH Q2H PRN PRN Reason: Shortness of Breath Last Admin: 06/28/17 05:10 Dose: 3 ml Albuterol/Ipratropium (Duoneb 3 Mg/0.5 Mg (3 Ml) Ud) 3 ml IH [id number] [facility] Last Admin: 06/28/17 11:20 Dose: 3 ml Aspirin (Aspirin Chewable) 81 mg PO DAILY [facility] Last Admin: 06/28/17 09:30 Dose: 81 mg Atorvastatin Calcium (Lipitor) 10 mg PO DAILY [facility] Last Admin: 06/28/17 09:30 Dose: 10 mg Heparin Sodium (Porcine) (Heparin) 5,000 units SC Q12 [facility] PRN Reason: Protocol Last Admin: 06/28/17 09:30 Dose: 5,000 units Azithromycin (Zithromax 500mg In Ns) 500 mg in 250 mls @ 167 mls/hr IVPB DAILY [facility] PRN Reason: Protocol Last Admin: 06/28/17 09:31 Dose: 167 mls/hr Methylprednisolone (Solu-Medrol) 40 mg IVP BID [facility] Last Admin: 06/28/17 09:31 Dose: 40 mg Metoprolol Tartrate (Lopressor) 25 mg PO BID [facility] Last Admin: 06/28/17 09:30 Dose: 25 mg Montelukast Sodium (Singulair) 10 mg PO DAILY [facility] Last Admin: 06/28/17 09:30 Dose: 10 mg Multivitamins (Thera Tab) 1 tab PO DAILY [facility] Last Admin: 06/28/17 09:30 Dose: 1 tab Pantoprazole Sodium (Protonix Ec Tab) 40 mg PO 0600 [facility] Last Admin: 06/28/17 05:10 Dose: 40 mg - Labs Labs: 06/28/17 07:31 06/28/17 07:31 PT 11.9 SECONDS (9.4-12.5) 06/26/17 19:18 INR 1.04 (0.93-1.08) 06/26/17 19:18 APTT 26.2 Seconds (25.1-36.5) 06/26/17 19:18 Attending/Attestation - Attestation I have personally seen and examined this patient.: Yes I have fully participated in the care of the patient.: Yes I have reviewed all pertinent clinical information, including history, physical exam and plan: Yes Notes (Text): 06/28/17 15:54 Medical record note made by the resident after discussion with my direction and input after the patient was personally seen and examined by me. I have reviewed the chart and agree that the record accurately reflects by personal performance of the history, physical exam, data review, and medical decision-making, in the course for the patient. I have also personally directed the plan of care. 86 yrs male with PMH of CVA, CAD, and COPD is admitted with hypercapnic Resp Failure due COPD exacerbation,patient is dyspnic Patient ABG today showed Resp acidosis with hypercapnia started on BIPAP ,We will continue neb/Steroid and antibiotics, Pulmonary is following. Patient has multiple liver lesion, has poor performance status. CT Scan finding were discussed with family, no plan for any work up as patient performance status is poor.This was discussed in detail with patient Prognosis is guarded.
[2017-06-29] MEDS ORDERED: Metoprolol 1 mg/ml Inj IVP STA (01:55)
[2017-06-29] MEDS ORDERED: MethylPREDNISolone 40 mg Vial IVP STA (01:59)
[2017-06-29 02:13] LABS: MEAN CELL VOLUME 88.4 fl (80.0-105.0); MEAN CORPUSCULAR HEMOGLOBIN 25.6 pg (25.0-35.0); MEAN CORPUSCULAR HGB CONC 28.9 g/dl (31.0-37.0); MEAN PLATELET VOLUME 10.1 fl (7.0-11.0); RBC 4.3 10^6/uL (3.5-6.1); RED CELL DISTRIBUTION WIDTH 14.6 % (11.5-14.5); WHITE BLOOD COUNT 17.9 10^3/ul (4.5-11.0)
[2017-06-29 02:16] LABS: ARTERIAL BLOOD GAS HCO3 30.5 mmol/L (21-28); ARTERIAL BLOOD GAS HEMOGLOBIN 11.4 g/dL (11.7-17.4); ARTERIAL BLOOD GAS O2 SAT 99.8 % (95-98); ARTERIAL BLOOD GAS PCO2 68 mm/Hg (35-45); ARTERIAL BLOOD GAS PH 7.26 (7.35-7.45); ARTERIAL BLOOD GAS TCO2 32.6 mmol.L (22-28)
--- NOTE | 2017-06-29 02:16 | PCM.RRT ---
<Naif Carrillo - Last Filed: 06/29/17 02:17> GRAPHICS SPECIALIST Nurse Assessment - Situation Date: 06/29/17 Time GRAPHICS SPECIALIST was called: 01:50 GRAPHICS SPECIALIST Responder Arrival Time: 01:53 GRAPHICS SPECIALIST Location:: [address] [place] [address] Room Number: 263-1 GRAPHICS SPECIALIST Reason for Call: Respiratory Distress GRAPHICS SPECIALIST Called By: RN - IV IV Inserted during GRAPHICS SPECIALIST?: No - Respiratory Oxygen Delivery Method: BiPAP @% Received Nebulizer Treatments:: Yes Was the Patient Ventilated with Bag/Mask 100% O2?: No (Pt is on BiPAP) Secretions Suctioned?: No Was the Patient Intubated?: No Was the Patient Placed on a Ventilator?: No - Medication Medications Administered During GRAPHICS SPECIALIST: metoprolol 5 mg IVP. Solumedrol 40 mg IVP - Diagnostic Test Ordered EKG: Yes Chest X-Ray: Yes CT Scan: No - Stat Labs Ordered GRAPHICS SPECIALIST Stat Labs Ordered: TROPONIN, ABG CPR started during GRAPHICS SPECIALIST?: No - Vital Signs Vital Sign: Rapid Response Vital Sign Blood Pressure 211/94 Pulse Rate 144 Respiratory Rate 40 Oxygen Saturation 80 - Time GRAPHICS SPECIALIST Ended Time GRAPHICS SPECIALIST Ended: 02:05 - Vital Signs at end of GRAPHICS SPECIALIST Vital Signs at end of GRAPHICS SPECIALIST: Rapid Response End Vital Sign Blood Pressure 159/77 Pulse Rate 105 Respiratory Rate 30 O2 Sat by Pulse Oximetry 99 - Recommendations Notifications: Family or Designated Caregiver I.Reason for GRAPHICS SPECIALIST - A) Acute Change in Patient: Subjective: Rapid response called for respiratory distress. Patient stated he was having shortness of breath. Patient denied chest pain or pain with breathing. Initial vital signs displayed a BP of 211/94, along with a heart rate in the 140's. Pulse ox was also noted to be in the low 80's. Patient was immediately placed on BIPAP. Patient respiratory distress lessened once on BIPAP. Patient was also given Metoprolol 5 mg IV and Solumedrol 40 mg IV. ABG, Troponin, EKG, chest x- ray, along with with AM labs drawn at this time. After several minutes, patient noted complete resolution of respiratory distress on BIPAP. Repeat BP was 140/60 , performed manually by me. Heart rate went down to baseline at 100. Pulse Ox was 96%. - Neurological Status (Select all that apply): Alert, Responsive, Oriented, Verbal, Follows Commands - Respiratory Oxygen Delivery Method: BiPAP @% - Constitutional Appears: Non-toxic - Head Head Exam: ATRAUMATIC, NORMAL INSPECTION, NORMOCEPHALIC - Respiratory Exam Respiratory Exam: Wheezes (Mild b/l wheezing). absent: Decreased Breath Sounds , Rales, Rhonchi - Cardiovascular Exam Cardiovascular Exam: Tachycardia, REGULAR RHYTHM - GI/Abdominal Exam GI & Abdominal Exam: Soft, Normal Bowel Sounds. absent: Tenderness - Neurological Exam Neurological Exam: Alert, Awake, Oriented x3 - Extremities Exam Extremities Exam: Normal Inspection Plan - Assessment of Findings&Treatment Plan 86 year old male with past medical history significant for COPD and CAD s/p CABG who presenting with respiratory distress secondary to COPD exacerbation. ABG demonstrates respiratory acidosis with metabolic compensation, consistent with previous ABG performed this morning. EKG demonstrates sinus tachycardia. Plan: Follow up CBC, CMP, Troponin Continue BIPAP Continue Solumedrol Duoneb treatments prn Primary care team notified Monitor respiratory status for worsening Gerardo PGY-2 <Rafael Zhang - Last Filed: 06/29/17 03:49> GRAPHICS SPECIALIST Nurse Assessment - Vital Signs Vital Sign: Rapid Response Vital Sign Blood Pressure 211/94 Pulse Rate 144 Respiratory Rate 40 Oxygen Saturation 80 - Vital Signs at end of GRAPHICS SPECIALIST Vital Signs at end of GRAPHICS SPECIALIST: Rapid Response End Vital Sign Blood Pressure 159/77 Pulse Rate 105 Respiratory Rate 30 O2 Sat by Pulse Oximetry 99 Attending/Attestation - Attestation I have personally seen and examined this patient.: Yes I have fully participated in the care of the patient.: Yes I have reviewed all pertinent clinical information, including history, physical exam and plan: Yes Notes (Text): 06/29/17 03:46 Agree with 's note. GRAPHICS SPECIALIST was called for elevated blood pressure of 211/94, HR of 144/min and pulse ox 83% on BiPAP 10/4 , 28%. Patient complained of dyspnea. CRITICAL CARE TIME SPENT: 30 minutes.
[2017-06-29 02:35] LABS: TROPONIN I < 0.01 ng/mL
[2017-06-29 03:49] LABS: ALBUMIN 3.7 g/dL (3.0-4.8); ALT/SGPT 52 U/L (7-56); AST/SGOT 84 U/L (17-59); BLOOD UREA NITROGEN 39 mg/dL (7-21); CALCIUM 9.1 mg/dL (8.4-10.5); GFR AFRICAN-AMERICAN > 60; GFR NON-AFRICAN AMERICAN 52
[2017-06-29] MEDS: Albuterol-Ipratrop 3 mg / 0.5 (3 ml) UD IH SCH ×7 (04:30→23:06)
[2017-06-29] MEDS: Pantoprazole 40 mg EC Tab PO SCH (05:15)
--- NOTE | 2017-06-29 07:45 | CP.PCM.PN ---
<Gillian Courtney - Last Filed: 06/29/17 16:21> Subjective - Date & Time of Evaluation Date of Evaluation: 06/29/17 Time of Evaluation: 07:42 - Subjective Subjective: Internal Medicine Progress Note: Patient seen and examined at bedside. Rapid response was called overnight for respiratory distress. Patient was given IV solumedrol, IV lopressor and placed on Bipap. This morning patient states that breathing is improved. Complaining that he wants water. Objective - Vital Signs/Intake and Output Vital Signs (last 24 hours): Temp Pulse Resp BP Pulse Ox 98.1 F 99 H 19 158/75 H 95 06/29/17 06:00 06/29/17 06:00 06/29/17 06:00 06/29/17 06:00 06/29/17 06:00 Intake and Output: 06/29/17 06/29/17 06:59 18:59 Intake Total 360 Output Total 100 Balance 260 - Medications Medications: Current Medications Acetaminophen (Tylenol 325mg Tab) 650 mg PO Q6H PRN PRN Reason: Fever >100.4 F Albuterol/Ipratropium (Duoneb 3 Mg/0.5 Mg (3 Ml) Ud) 3 ml IH Q2H PRN PRN Reason: Shortness of Breath Last Admin: 06/28/17 05:10 Dose: 3 ml Albuterol/Ipratropium (Duoneb 3 Mg/0.5 Mg (3 Ml) Ud) 3 ml IH [id number] [facility] Last Admin: 06/29/17 04:30 Dose: 3 ml Aspirin (Aspirin Chewable) 81 mg PO DAILY [facility] Last Admin: 06/28/17 09:30 Dose: 81 mg Atorvastatin Calcium (Lipitor) 10 mg PO DAILY [facility] Last Admin: 06/28/17 09:30 Dose: 10 mg Heparin Sodium (Porcine) (Heparin) 5,000 units SC Q12 [facility] PRN Reason: Protocol Last Admin: 06/28/17 22:03 Dose: 5,000 units Azithromycin (Zithromax 500mg In Ns) 500 mg in 250 mls @ 167 mls/hr IVPB DAILY [facility] PRN Reason: Protocol Last Admin: 06/28/17 09:31 Dose: 167 mls/hr Methylprednisolone (Solu-Medrol) 40 mg IVP BID [facility] Last Admin: 06/28/17 17:53 Dose: 40 mg Metoprolol Tartrate (Lopressor) 25 mg PO BID [facility] Last Admin: 06/28/17 17:33 Dose: 25 mg Montelukast Sodium (Singulair) 10 mg PO DAILY [facility] Last Admin: 06/28/17 09:30 Dose: 10 mg Multivitamins (Thera Tab) 1 tab PO DAILY [facility] Last Admin: 06/28/17 09:30 Dose: 1 tab Pantoprazole Sodium (Protonix Ec Tab) 40 mg PO 0600 [facility] Last Admin: 06/29/17 05:15 Dose: 40 mg - Labs Labs: 06/29/17 02:05 06/29/17 02:05 PT 11.9 SECONDS (9.4-12.5) 06/26/17 19:18 INR 1.04 (0.93-1.08) 06/26/17 19:18 APTT 26.2 Seconds (25.1-36.5) 06/26/17 19:18 - Constitutional Appears: Non-toxic, No Acute Distress - Head Exam Head Exam: ATRAUMATIC, NORMAL INSPECTION, NORMOCEPHALIC - Eye Exam Eye Exam: EOMI, Normal appearance - ENT Exam ENT Exam: Mucous Membranes Dry - Respiratory Exam Respiratory Exam: Decreased Breath Sounds. absent: Rales, Rhonchi Additional comments: On BIPAP - Cardiovascular Exam Cardiovascular Exam: Tachycardia, +S1, +S2 - GI/Abdominal Exam GI & Abdominal Exam: Soft, Normal Bowel Sounds. absent: Guarding, Rigid, Tenderness - Extremities Exam Extremities Exam: Normal Inspection - Neurological Exam Neurological Exam: Alert, Awake, Oriented x3 - Psychiatric Exam Psychiatric exam: Normal Affect, Normal Mood - Skin Skin Exam: Dry, Normal Color, Warm Assessment and Plan - Assessment and Plan (Free Text) Assessment: 86 year old male with past medical history significant for advanced age, COPD and CAD who presented with worsening dyspnea. Rapid response was called last night 06/29/17 for respiratory distress. Patient was placed on BIPAP, given STAT dose of IV solumedrol and IV lopressor. CXR was negative. Plan: 1) COPD exacerbation with hypercapnia and muscle wasting - Transition to AL this morning - Continue BIPAP at night - Repeat ABG ordered for today - Continue Duonebs q4h [facility], Duonebs q2h PRN - Continue Solumedrol 40 mg q12h (will start prednisone taper tomorrow) - Continue Singulair 10 mg - CXR 06/29/17: No active disease - Anticiotics: Azithromycin 500 mg daily; Rocephin discontinued (low procal) - Urine legionella negative, CMV IgG positive > 10.00 - Aspergillis, Cryptococcus, HHV6, S pneumonia pending - Continue Ensure clear supplement 3 daily - Pulmonary on consult, will f/u recommendations - PT eval ordered, f/u recommendations 2) Lung Nodule - CT Chest showed severe emphysematous changes, small consolidation in RLL possible atelectasis vs infectious. Lung nodule 1.3cm in the left lower lobe and 1.5x1.2cm precarinal lymph node; PET scan was recommended for further evaluation - Per prior documentation, findings were discussed with the family who does not wish to pursue any workup at this time - Pulmonary on consult, will f/u recommendations - Palliative care on consult,for advance care planning, after discussion with the family, patient to be made DNR/DNI 3) Leukocytosis - WBC 17.9 today, afebrile - Likely elevated 2/2 to steroid use - Blood cx, Urine cx negative, Procal low - Will continue to monitor 4) History of CAD - Echocardiogram showed LVEF of 74%, mild septal hypokinesis, and mild pulmonary hypertension - Cont ASA, Lipitor, and Lopressor 5) Elevated BP -Patient on Lopressor, caution in light of COPD exacerbation 2/2 broncospasm -Start Lisinopril 2.5mg PO daily 6) Hypernatremia -Sodium 151 today, mildly elevated -Will continue to monitor at this time GI/DVT prophylaxis - Protonix 40mg PO daily - Heparin 5000 U Q12H Plan discussed with Dr Montez <Waldemar Montez - Last Filed: 06/29/17 16:35> Objective - Vital Signs/Intake and Output Vital Signs (last 24 hours): Temp Pulse Resp BP Pulse Ox 97.5 F L 89 18 133/68 95 06/29/17 12:00 06/29/17 13:45 06/29/17 12:00 06/29/17 13:45 06/29/17 06:00 Intake and Output: 06/29/17 06/29/17 06:59 18:59 Intake Total 360 600 Output Total 100 200 Balance 260 400 - Medications Medications: Current Medications Acetaminophen (Tylenol 325mg Tab) 650 mg PO Q6H PRN PRN Reason: Fever >100.4 F Albuterol/Ipratropium (Duoneb 3 Mg/0.5 Mg (3 Ml) Ud) 3 ml IH Q2H PRN PRN Reason: Shortness of Breath Last Admin: 06/28/17 05:10 Dose: 3 ml Albuterol/Ipratropium (Duoneb 3 Mg/0.5 Mg (3 Ml) Ud) 3 ml IH [id number] [facility] Last Admin: 06/29/17 14:20 Dose: 3 ml Aspirin (Aspirin Chewable) 81 mg PO DAILY [facility] Last Admin: 06/29/17 09:08 Dose: 81 mg Atorvastatin Calcium (Lipitor) 10 mg PO DAILY [facility] Last Admin: 06/29/17 09:07 Dose: 10 mg Heparin Sodium (Porcine) (Heparin) 5,000 units SC Q12 [facility] PRN Reason: Protocol Last Admin: 06/29/17 09:07 Dose: 5,000 units Azithromycin (Zithromax 500mg In Ns) 500 mg in 250 mls @ 167 mls/hr IVPB DAILY [facility] PRN Reason: Protocol Last Admin: 06/29/17 09:07 Dose: 167 mls/hr Lisinopril (Zestril) 2.5 mg PO DAILY [facility] Last Admin: 06/29/17 13:45 Dose: 2.5 mg Methylprednisolone (Solu-Medrol) 40 mg IVP BID [facility] Last Admin: 06/29/17 09:07 Dose: 40 mg Metoprolol Tartrate (Lopressor) 25 mg PO BID [facility] Last Admin: 06/29/17 09:08 Dose: 25 mg Montelukast Sodium (Singulair) 10 mg PO DAILY [facility] Last Admin: 06/29/17 09:07 Dose: 10 mg Multivitamins (Thera Tab) 1 tab PO DAILY [facility] Last Admin: 06/29/17 09:08 Dose: 1 tab Pantoprazole Sodium (Protonix Ec Tab) 40 mg PO 0600 [facility] Last Admin: 06/29/17 05:15 Dose: 40 mg - Labs Labs: 06/29/17 02:05 06/29/17 02:05 PT 11.9 SECONDS (9.4-12.5) 06/26/17 19:18 INR 1.04 (0.93-1.08) 06/26/17 19:18 APTT 26.2 Seconds (25.1-36.5) 06/26/17 19:18 Attending/Attestation - Attestation I have personally seen and examined this patient.: Yes I have fully participated in the care of the patient.: Yes I have reviewed all pertinent clinical information, including history, physical exam and plan: Yes Notes (Text): 06/29/17 16:32 86 year old male with past medical history of CVA, CAD and COPD who presented with respiratory distress secondary to COPD exacerbation. Continue with duonebs and iv steroids taper. Continue with bipap at night. Continue with supplemental oxygen as needed. CT lung and liver findings discussed with family who did not wish for addition workup. Pulmonary and palliative care consultations were appreciated. Family is at bedside and questions were answered. Waldemar Montez MD Hospitalist.
[2017-06-29] MEDS: MethylPREDNISolone 40 mg Vial IVP SCH ×2 (09:07→18:43)
[2017-06-29] MEDS: Azithromycin 500MG/NS 250ml 500 MG/250 ML BAG IVPB SCH (09:07)
[2017-06-29] MEDS: Multivitamin Therapeutic Tab PO SCH (09:08)
--- NOTE | 2017-06-29 09:11 | RAD ---
HISTORY: rapid reponse, difficulty breathing COMPARISON: 06/26/2017 FINDINGS: LUNGS: Interstitial changes are seen in both lung bases PLEURA: No significant pleural effusion identified, no pneumothorax apparent. CARDIOVASCULAR: Normal. OSSEOUS STRUCTURES: No significant abnormalities. VISUALIZED UPPER ABDOMEN: Normal. OTHER FINDINGS: None. IMPRESSION: No active disease.
--- NOTE | 2017-06-29 10:36 | CP.PCM.CON ---
History of Present Illness - History of Present Illness History of Present Illness: Palliative consult requested by Dr Candelaria Montez Reason: Goals of care and advance care planning 86 year old male with history of HTN, asthma and CVA who presents with shortness of breath which has increased over the past few days. He denied nausea ,vomiting,fever,chills diarrhea abdominal or chest pain. Chest CT showed no PE, severe emphysematous changes bilaterally,small consolidation at LL lobe, scattered lung nodules,heterogeneous enhancement of left internal jugular vein, enlarged precarinal lymph node, multiple dense hepatic lesions, mild nodular thickening in right adrenal gland, PET recommended for further evaluation. Echo ; LV normal,EF within normal limits, mild pulmonary HTN, moderately sclerotic aortic valve. PMHx: Asthma, HTN,CVA, CABG. Social History: Former heavy smoker, no alcohol or drug abuse. lives with spouse. Speaks Polish. Family History: Non contributory. Advance Care Planning: The patient does not have an Advanced Directive. Review of Systems: As per HPI,other boston negative 12 point review. Past Patient History - Infectious Disease Hx of Infectious Diseases: None - Past Social History Smoking Status: Former Smoker - CARDIAC Hx Hypertension: Yes - PULMONARY Hx Asthma: Yes - MUSCULOSKELETAL/RHEUMATOLOGICAL Hx Falls: No - PSYCHIATRIC Hx Substance Use: No Meds Home Medications: Home Medication List Medication Instructions Recorded Confirmed Type Albuterol 0.083% [Albuterol 0.083% 2.5 mg IH Q4 PRN #20 neb 06/26/17 Rx Inhal Shanda (2.5 mg/3 ml) UD] Prednisone 50 mg PO DAILY #5 tablet 06/26/17 Rx Allergies/Adverse Reactions: Allergies Allergy/AdvReac Type Severity Reaction Status Date / Time No Known Allergies Allergy Verified 06/26/17 18:56 - Medications Medications: Current Medications Acetaminophen (Tylenol 325mg Tab) 650 mg PO Q6H PRN PRN Reason: Fever >100.4 F Albuterol/Ipratropium (Duoneb 3 Mg/0.5 Mg (3 Ml) Ud) 3 ml IH Q2H PRN PRN Reason: Shortness of Breath Last Admin: 06/28/17 05:10 Dose: 3 ml Albuterol/Ipratropium (Duoneb 3 Mg/0.5 Mg (3 Ml) Ud) 3 ml IH [id number] Last Admin: 06/29/17 07:56 Dose: 3 ml Aspirin (Aspirin Chewable) 81 mg PO DAILY [facility] Last Admin: 06/29/17 09:08 Dose: 81 mg Atorvastatin Calcium (Lipitor) 10 mg PO DAILY [facility] Last Admin: 06/29/17 09:07 Dose: 10 mg Heparin Sodium (Porcine) (Heparin) 5,000 units SC Q12 [facility] PRN Reason: Protocol Last Admin: 06/29/17 09:07 Dose: 5,000 units Azithromycin (Zithromax 500mg In Ns) 500 mg in 250 mls @ 167 mls/hr IVPB DAILY [facility] PRN Reason: Protocol Last Admin: 06/29/17 09:07 Dose: 167 mls/hr Methylprednisolone (Solu-Medrol) 40 mg IVP BID [facility] Last Admin: 06/29/17 09:07 Dose: 40 mg Metoprolol Tartrate (Lopressor) 25 mg PO BID [facility] Last Admin: 06/29/17 09:08 Dose: 25 mg Montelukast Sodium (Singulair) 10 mg PO DAILY [facility] Last Admin: 06/29/17 09:07 Dose: 10 mg Multivitamins (Thera Tab) 1 tab PO DAILY [facility] Last Admin: 06/29/17 09:08 Dose: 1 tab Pantoprazole Sodium (Protonix Ec Tab) 40 mg PO 0600 [facility] Last Admin: 06/29/17 05:15 Dose: 40 mg Physical Exam - Constitutional Appears: No Acute Distress, Cachectic - Head Exam Head Exam: NORMOCEPHALIC - Eye Exam Eye Exam: Normal appearance, PERRL - ENT Exam ENT Exam: Mucous Membranes Moist, Normal Oropharynx - Neck Exam Neck exam: Positive for: Normal Inspection - Respiratory Exam Respiratory Exam: Decreased Breath Sounds, Rhonchi - Cardiovascular Exam Cardiovascular Exam: REGULAR RHYTHM, +S1, +S2 - GI/Abdominal Exam GI & Abdominal Exam: Normal Bowel Sounds, Soft - Extremities Exam Extremities exam: Positive for: normal inspection, pedal pulses present - Back Exam Back exam: NORMAL INSPECTION - Neurological Exam Neurological exam: Alert, Oriented x3 - Skin Skin Exam: Dry, Pallor - Additional Findings Additional findings: Palliative performance scale rating 50% Results - Vital Signs Recent Vital Signs: Last Vital Signs Temp 98.1 F 06/29/17 06:00 Pulse 106 H 06/29/17 09:08 Resp 19 06/29/17 06:00 BP 139/65 06/29/17 09:08 Pulse Ox 95 06/29/17 06:00 - Labs Result Diagrams: 06/29/17 02:05 06/29/17 02:05 Labs: Laboratory Results - last 24 hr 06/27/17 06/28/17 06/29/17 06:30 11:25 02:02 WBC RBC Hgb Hct MCV MCH MCHC RDW Plt Count MPV pCO2 62 H 68 H pO2 120.0 H 169.0 H HCO3 29.1 H 30.5 H ABG pH 7.28 L 7.26 L ABG Total CO2 31.0 H 32.6 H ABG O2 Saturation 99.3 H 99.8 H ABG O2 Content 13.6 L 16.0 ABG Base Excess 1.5 2.0 ABG Hemoglobin 9.8 L 11.4 L ABG Carboxyhemoglobin 1.6 H 1.8 H POC ABG HHb (Measured) 0.7 0.2 ABG Methemoglobin 0.5 0.5 ABG O2 Capacity 13.7 L 16.0 Hgb O2 Saturation 97.2 97.5 FiO2 32.0 28.0 Sodium Potassium Chloride Carbon Dioxide Anion Gap BUN Creatinine Est GFR ( Amer) Est GFR (Non-Af Amer) Random Glucose Calcium Total Bilirubin AST ALT Alkaline Phosphatase Troponin I Total Protein Albumin Globulin Albumin/Globulin Ratio CMV IgG Ab >10.00 H CMV IgM Ab <30.00 06/29/17 06/29/17 02:05 02:05 WBC 17.9 H RBC 4.30 Hgb 11.0 L Hct 38.0 L MCV 88.4 MCH 25.6 MCHC 28.9 L RDW 14.6 H Plt Count 292 MPV 10.1 pCO2 pO2 HCO3 ABG pH ABG Total CO2 ABG O2 Saturation ABG O2 Content ABG Base Excess ABG Hemoglobin ABG Carboxyhemoglobin POC ABG HHb (Measured) ABG Methemoglobin ABG O2 Capacity Hgb O2 Saturation FiO2 Sodium 151 H Potassium 4.9 Chloride 108 H Carbon Dioxide 33 Anion Gap 15 BUN 39 H Creatinine 1.3 Est GFR ( Amer) > 60 Est GFR (Non-Af Amer) 52 Random Glucose 133 H Calcium 9.1 Total Bilirubin 0.1 L AST 84 H D ALT 52 Alkaline Phosphatase 56 Troponin I < 0.01 Total Protein 7.5 Albumin 3.7 Globulin 3.8 Albumin/Globulin Ratio 1.0 L CMV IgG Ab CMV IgM Ab Assessment & Plan - Assessment and Plan (Free Text) Assessment: 86 year old male with history of asthma, CVA and HTN who was admitted with shortness of breath. Severe emphysema,multiple lung nodules and liver lesions identified on CT. Patient and do not speak Swedish. Polish canary raiser at bedside. The patient states that he wants his son to be present during our conversations. Patients son Santos De La Cruz arrived later. Son is aware of his fathers medical situation. Son states his father was recently released from [facility] after having an extensive medical work up. Son states that his father is ill and is aware that his condition will continue to deteriorate. Advance Care planning discussion ensued. Son understands the ramifications of aggressive interventions such as CPR and intubation. Son states that his father does not want CPR/intubation or permanent feeding tube. POLST directive explained. POLST Directive completed by son, a copy is on the chart. Son states that family does not intend to do any further work up for fathers condition. Psychosola support provided. Family to meet with correctional case records supervisor to discuss discharge plan. Time spent with patient and family in goals of care and advance care planning discussion , 30 minutes Plan: Advance care planning; POLST DNR/DNI. Pulmonary consult reviewed, BIPAP as needed. Continue nebulizers as ordered. SW evaluation for equipment needs upon discharge
[2017-06-29 11:43] LABS: ARTERIAL BLOOD GAS HCO3 32.7 mmol/L (21-28); ARTERIAL BLOOD GAS HEMOGLOBIN 10.2 g/dL (11.7-17.4); ARTERIAL BLOOD GAS O2 CONTENT 13.9 ML/dl (15-23); ARTERIAL BLOOD GAS PCO2 62 mm/Hg (35-45); ARTERIAL BLOOD GAS PH 7.33 (7.35-7.45); ARTERIAL BLOOD GAS TCO2 34.6 mmol.L (22-28)
--- NOTE | 2017-06-29 12:51 | CP.PCM.CON ---
History of Present Illness - History of Present Illness History of Present Illness: PULMONARY CONSULT NOTE HPI Patient is 86yo male with PMHx of CVA, CAD, Emphysema, COPD on home O2, Asthma, Chinese speaking only, presented with SOB for few days. Pt's son Santos De La Cruz provided most of history and translation as per the patients request. Pt notes he has been SOb for few days, associated with dry non productive cough. Denies fever, chills, chest pain, LE edema, PRIDE, dizziness. Pt was admitted and started on IV steroids and BIPAP PRN, which he states helps him tremendously. Pt at home takes Combivent, Ventolin PRN, Breo BID, and is on home oxygen. Pt noted to have Lung nodules with liver lesions suspicious for malignant process, which he reports he does not want further workup. Pt see by palliative care, POLST signed, DNR/DNI. PMH: as above Surg: CABG, unspecified cranial procedure 2/2 CVA All: NKDA FHx: Non-contributory SH: Former 1 ppd for 20 yrs (quit 30 yrs ago); Denied EtOH and illicit drug use. Medications as per [facility] Review of Systems - Review of Systems Review of Systems: as per HPI Past Patient History - Infectious Disease Hx of Infectious Diseases: None - Past Social History Smoking Status: Former Smoker - CARDIAC Hx Hypertension: Yes - PULMONARY Hx Asthma: Yes - MUSCULOSKELETAL/RHEUMATOLOGICAL Hx Falls: No - PSYCHIATRIC Hx Substance Use: No Meds Home Medications: Home Medication List Medication Instructions Recorded Confirmed Type Albuterol 0.083% [Albuterol 0.083% 2.5 mg IH Q4 PRN #20 neb 06/26/17 Rx Inhal Shanda (2.5 mg/3 ml) UD] Prednisone 50 mg PO DAILY #5 tablet 06/26/17 Rx Allergies/Adverse Reactions: Allergies Allergy/AdvReac Type Severity Reaction Status Date / Time No Known Allergies Allergy Verified 06/26/17 18:56 - Medications Medications: Current Medications Acetaminophen (Tylenol 325mg Tab) 650 mg PO Q6H PRN PRN Reason: Fever >100.4 F Albuterol/Ipratropium (Duoneb 3 Mg/0.5 Mg (3 Ml) Ud) 3 ml IH Q2H PRN PRN Reason: Shortness of Breath Last Admin: 06/28/17 05:10 Dose: 3 ml Albuterol/Ipratropium (Duoneb 3 Mg/0.5 Mg (3 Ml) Ud) 3 ml IH [id number] [facility] Last Admin: 06/29/17 07:56 Dose: 3 ml Aspirin (Aspirin Chewable) 81 mg PO DAILY [facility] Last Admin: 06/29/17 09:08 Dose: 81 mg Atorvastatin Calcium (Lipitor) 10 mg PO DAILY [facility] Last Admin: 06/29/17 09:07 Dose: 10 mg Heparin Sodium (Porcine) (Heparin) 5,000 units SC Q12 [facility] PRN Reason: Protocol Last Admin: 06/29/17 09:07 Dose: 5,000 units Azithromycin (Zithromax 500mg In Ns) 500 mg in 250 mls @ 167 mls/hr IVPB DAILY [facility] PRN Reason: Protocol Last Admin: 06/29/17 09:07 Dose: 167 mls/hr Lisinopril (Zestril) 2.5 mg PO DAILY [facility] Methylprednisolone (Solu-Medrol) 40 mg IVP BID [facility] Last Admin: 06/29/17 09:07 Dose: 40 mg Metoprolol Tartrate (Lopressor) 25 mg PO BID [facility] Last Admin: 06/29/17 09:08 Dose: 25 mg Montelukast Sodium (Singulair) 10 mg PO DAILY [facility] Last Admin: 06/29/17 09:07 Dose: 10 mg Multivitamins (Thera Tab) 1 tab PO DAILY [facility] Last Admin: 06/29/17 09:08 Dose: 1 tab Pantoprazole Sodium (Protonix Ec Tab) 40 mg PO 0600 [facility] Last Admin: 06/29/17 05:15 Dose: 40 mg Physical Exam - Constitutional Appears: Non-toxic, No Acute Distress, Cachectic, Chronically Ill - Eye Exam Eye Exam: Normal appearance - ENT Exam ENT Exam: Mucous Membranes Dry - Respiratory Exam Respiratory Exam: Wheezes, NORMAL BREATHING PATTERN - Cardiovascular Exam Cardiovascular Exam: REGULAR RHYTHM, +S1, +S2 - GI/Abdominal Exam GI & Abdominal Exam: Normal Bowel Sounds, Soft - Extremities Exam Extremities exam: Positive for: normal inspection - Neurological Exam Neurological exam: Alert Results - Vital Signs Recent Vital Signs: Last Vital Signs Temp 97.5 F L 06/29/17 12:00 Pulse 99 H 06/29/17 12:00 Resp 18 06/29/17 12:00 BP 150/75 06/29/17 12:00 Pulse Ox 95 06/29/17 06:00 - Labs Result Diagrams: 06/29/17 02:05 06/29/17 02:05 Labs: Laboratory Results - last 24 hr 06/27/17 06/29/17 06/29/17 06:30 02:02 02:05 WBC 17.9 H RBC 4.30 Hgb 11.0 L Hct 38.0 L MCV 88.4 MCH 25.6 MCHC 28.9 L RDW 14.6 H Plt Count 292 MPV 10.1 pCO2 68 H pO2 169.0 H HCO3 30.5 H ABG pH 7.26 L ABG Total CO2 32.6 H ABG O2 Saturation 99.8 H ABG O2 Content 16.0 ABG Base Excess 2.0 ABG Hemoglobin 11.4 L ABG Carboxyhemoglobin 1.8 H POC ABG HHb (Measured) 0.2 ABG Methemoglobin 0.5 ABG O2 Capacity 16.0 Hgb O2 Saturation 97.5 FiO2 28.0 Sodium Potassium Chloride Carbon Dioxide Anion Gap BUN Creatinine Est GFR ( Amer) Est GFR (Non-Af Amer) Random Glucose Calcium Total Bilirubin AST ALT Alkaline Phosphatase Troponin I Total Protein Albumin Globulin Albumin/Globulin Ratio CMV IgG Ab >10.00 H CMV IgM Ab <30.00 06/29/17 06/29/17 02:05 11:35 WBC RBC Hgb Hct MCV MCH MCHC RDW Plt Count MPV pCO2 62 H pO2 106.0 H HCO3 32.7 H ABG pH 7.33 L ABG Total CO2 34.6 H ABG O2 Saturation 99.0 H ABG O2 Content 13.9 L ABG Base Excess 5.4 H ABG Hemoglobin 10.2 L ABG Carboxyhemoglobin 1.6 H POC ABG HHb (Measured) 1.0 ABG Methemoglobin 1.4 ABG O2 Capacity 14.0 L Hgb O2 Saturation 95.9 FiO2 32.0 Sodium 151 H Potassium 4.9 Chloride 108 H Carbon Dioxide 33 Anion Gap 15 BUN 39 H Creatinine 1.3 Est GFR ( Amer) > 60 Est GFR (Non-Af Amer) 52 Random Glucose 133 H Calcium 9.1 Total Bilirubin 0.1 L AST 84 H D ALT 52 Alkaline Phosphatase 56 Troponin I < 0.01 Total Protein 7.5 Albumin 3.7 Globulin 3.8 Albumin/Globulin Ratio 1.0 L CMV IgG Ab CMV IgM Ab - Imaging and Cardiology CT scan - chest Status: Image reviewed by me, Report reviewed by me Assessment & Plan - Assessment and Plan (Free Text) Assessment: 86yo male with SOB and CLINICAL MARKETING MANAGER exacerbation Asthma COPD exacerbation Emphysema Lung nodules Liver lesions SOB Recommend: - supp o2 2LPM at least 15hours/day - BIPAP 12/5/40% at night at home, given evidence of CO2 retention on ABG here - Duoneb Nebulizers q4hr at home as needed - Breo BID - Singulair 10mg daily - would switch Solumedrol to PO Prednisone with taper - outpatient pulmonary follow up - patient and family do not want further workup for lung nodule and liver lesions, risks and benefits explained - POLST form signed, palliative care follow up, DNR/DNI
[2017-06-30] MEDS: Albuterol-Ipratrop 3 mg / 0.5 (3 ml) UD IH PRN (02:49)
[2017-06-30] MEDS: Albuterol-Ipratrop 3 mg / 0.5 (3 ml) UD IH SCH ×4 (05:08→15:30)
[2017-06-30] MEDS: Pantoprazole 40 mg EC Tab PO SCH (05:28)
[2017-06-30 06:25] LABS: HEMOGLOBIN 9.9 g/dL (14.0-18.0); MEAN CELL VOLUME 87.2 fl (80.0-105.0); MEAN CORPUSCULAR HEMOGLOBIN 25.4 pg (25.0-35.0); MEAN CORPUSCULAR HGB CONC 29.1 g/dl (31.0-37.0); RBC 3.9 10^6/uL (3.5-6.1); RED CELL DISTRIBUTION WIDTH 14.2 % (11.5-14.5); WHITE BLOOD COUNT 11.6 10^3/ul (4.5-11.0)
[2017-06-30 07:07] LABS: ALBUMIN 3.1 g/dL (3.0-4.8); BLOOD UREA NITROGEN 49 mg/dL (7-21); CALCIUM 8.7 mg/dL (8.4-10.5); GFR AFRICAN-AMERICAN > 60; GFR NON-AFRICAN AMERICAN 57
[2017-06-30 07:08] LABS: ALT/SGPT 50 U/L (7-56); AST/SGOT 40 U/L (17-59)
[2017-06-30] MEDS ORDERED: Budesonide 0.25 mg/2 ml Inhal Susp UD IH SCH (08:00)
[2017-06-30] MEDS ORDERED: Arformoterol 15 mcg/2 ml Inh Sol IH SCH (08:00)
[2017-06-30] MEDS ORDERED: Fluticasone-Salmeterol 100-50mcg Diskus IH SCH (10:00)
[2017-06-30 10:13] VITALS: RESP 20; O2SAT 97
[2017-06-30] MEDS: Multivitamin Therapeutic Tab PO SCH (10:13)
[2017-06-30] MEDS: Azithromycin 500MG/NS 250ml 500 MG/250 ML BAG IVPB SCH (10:13)
--- NOTE | 2017-06-30 11:50 | CP.PCM.PN ---
Subjective - Date & Time of Evaluation Date of Evaluation: 06/30/17 Time of Evaluation: 10:30 - Subjective Subjective: Dyspnea on exertion. Otherwise no acute findings Objective - Vital Signs/Intake and Output Vital Signs (last 24 hours): Temp Pulse Resp BP Pulse Ox 97.8 F 107 H 20 124/54 L 97 06/30/17 06:00 06/30/17 10:14 06/30/17 10:12 06/30/17 10:14 06/30/17 10:12 Intake and Output: 06/30/17 06/30/17 06:59 18:59 Intake Total 170 Output Total 250 Balance -80 - Medications Medications: Current Medications Acetaminophen (Tylenol 325mg Tab) 650 mg PO Q6H PRN PRN Reason: Fever >100.4 F Albuterol/Ipratropium (Duoneb 3 Mg/0.5 Mg (3 Ml) Ud) 3 ml IH Q2H PRN PRN Reason: Shortness of Breath Last Admin: 06/30/17 02:49 Dose: 3 ml Albuterol/Ipratropium (Duoneb 3 Mg/0.5 Mg (3 Ml) Ud) 3 ml IH [id number] [facility] Last Admin: 06/30/17 11:36 Dose: 3 ml Arformoterol Tartrate (Brovana) 15 mcg IH [id number] [facility] Last Admin: 06/30/17 08:25 Dose: 15 mcg Aspirin (Aspirin Chewable) 81 mg PO DAILY [facility] Last Admin: 06/30/17 10:13 Dose: 81 mg Atorvastatin Calcium (Lipitor) 10 mg PO DAILY [facility] Last Admin: 06/30/17 10:13 Dose: 10 mg Budesonide (Pulmicort Respules) 0.25 mg IH [id number] [facility] Last Admin: 06/30/17 08:25 Dose: 0.25 mg Heparin Sodium (Porcine) (Heparin) 5,000 units SC Q12 [facility] PRN Reason: Protocol Last Admin: 06/30/17 10:13 Dose: 5,000 units Azithromycin (Zithromax 500mg In Ns) 500 mg in 250 mls @ 167 mls/hr IVPB DAILY [facility] PRN Reason: Protocol Last Admin: 06/30/17 10:13 Dose: 167 mls/hr Lisinopril (Zestril) 2.5 mg PO DAILY [facility] Last Admin: 06/30/17 10:14 Dose: 2.5 mg Metoprolol Tartrate (Lopressor) 25 mg PO BID [facility] Last Admin: 06/30/17 10:14 Dose: 25 mg Montelukast Sodium (Singulair) 10 mg PO DAILY [facility] Last Admin: 06/30/17 10:13 Dose: 10 mg Multivitamins (Thera Tab) 1 tab PO DAILY [facility] Last Admin: 06/30/17 10:13 Dose: 1 tab Pantoprazole Sodium (Protonix Ec Tab) 40 mg PO 0600 [facility] Last Admin: 06/30/17 05:28 Dose: 40 mg Prednisone (Prednisone Tab) 40 mg PO DAILY [facility] Last Admin: 06/30/17 10:13 Dose: 40 mg - Labs Labs: 06/30/17 05:30 06/30/17 05:30 PT 11.9 SECONDS (9.4-12.5) 06/26/17 19:18 INR 1.04 (0.93-1.08) 06/26/17 19:18 APTT 26.2 Seconds (25.1-36.5) 06/26/17 19:18 - Constitutional Appears: Cachectic, Chronically Ill - Head Exam Head Exam: NORMAL INSPECTION - Eye Exam Eye Exam: Normal appearance, PERRL - ENT Exam ENT Exam: Mucous Membranes Moist - Respiratory Exam Respiratory Exam: Accessory Muscle Use, Decreased Breath Sounds, Rhonchi - Cardiovascular Exam Cardiovascular Exam: REGULAR RHYTHM, +S1, +S2 - GI/Abdominal Exam GI & Abdominal Exam: Soft, Normal Bowel Sounds - Extremities Exam Extremities Exam: Normal Capillary Refill, Pedal Edema - Neurological Exam Neurological Exam: Alert, Oriented x3 - Skin Skin Exam: Dry, Warm Assessment and Plan - Assessment and Plan (Free Text) Assessment: 86 delvin old male with history of asthma,CABG who presented with shortness of breath. Found to have numerous pulmonary nodules and hepatic lesions on CT. Family is aware of the situation as patient was recently at [facility] where he had complete work up. Family has decided not to pursue additional work up> Advance care palling shafer with patient and family yesterday, POLST:DNR/DNI completed Patient is preparing to be discharged home today. Family has been in discussion with and senior case manager regarding equipment needs and additional services which will be available to them at home. Psychosocial support provided Plan: Pulmonary: Continue Albuteral IH, Pulmicort IH and Singulair. Prednisone 40 mg daily.Follow up with letterset press set up operator. POLST DNR/DNI.
[2017-06-30 12:21] VITALS: BP 129/59; PULSE 93; TEMP 98.6
--- NOTE | 2017-06-30 12:38 | CP.PCM.DIS ---
<Gillian Courtney - Last Filed: 06/30/17 13:17> Provider - Provider Date of Admission: 06/26/17 21:55 Attending physician: Waldemar Montez MD Primary care physician: Leticia Gusman MD Consults: Pulmonology: [place] Palliative Care: [place] Time Spent in preparation of Discharge (in minutes): 45 Hospital Course - Lab Results Lab Results: Micro Results 06/26/17 22:24 Blood Blood Culture - Preliminary NO GROWTH AFTER 3 DAYS 06/26/17 22:05 Blood Blood Culture - Preliminary NO GROWTH AFTER 3 DAYS 06/28/17 00:25 Urine,Clean Catch Urine Culture - Final No Growth (<1,000 CFU/ML) Most Recent Lab Values WBC 11.6 10^3/ul (4.5-11.0) H D 06/30/17 05:30 RBC 3.90 10^6/uL (3.5-6.1) 06/30/17 05:30 Hgb 9.9 g/dL (14.0-18.0) L 06/30/17 05:30 Hct 34.0 % (42.0-52.0) L 06/30/17 05:30 MCV 87.2 fl (80.0-105.0) 06/30/17 05:30 MCH 25.4 pg (25.0-35.0) 06/30/17 05:30 MCHC 29.1 g/dl (31.0-37.0) L 06/30/17 05:30 RDW 14.2 % (11.5-14.5) 06/30/17 05:30 Plt Count 250 10^3/uL (120.0-450.0) 06/30/17 05:30 MPV 11.0 fl (7.0-11.0) 06/30/17 05:30 Gran % 76.1 % (50.0-68.0) H 06/26/17 19:18 Lymph % (Auto) 13.3 % (22.0-35.0) L 06/26/17 19:18 Pike % (Auto) 9.7 % (1.0-6.0) H 06/26/17 19:18 Eos % (Auto) 0.6 % (1.5-5.0) L 06/26/17 19:18 Baso % (Auto) 0.3 % (0.0-3.0) 06/26/17 19:18 Gran # 5.09 (1.4-6.5) 06/26/17 19:18 Lymph # (Auto) 0.9 (1.2-3.4) L 06/26/17 19:18 Pike # (Auto) 0.7 (0.1-0.6) H 06/26/17 19:18 Eos # (Auto) 0.0 (0.0-0.7) 06/26/17 19:18 Baso # (Auto) 0.02 K/mm3 (0.0-2.0) 06/26/17 19:18 ESR 40 mm/hr (0.00-15.0) H 06/26/17 22:40 PT 11.9 SECONDS (9.4-12.5) 06/26/17 19:18 INR 1.04 (0.93-1.08) 06/26/17 19:18 APTT 26.2 Seconds (25.1-36.5) 06/26/17 19:18 pCO2 62 mm/Hg (35-45) H 06/29/17 11:35 pO2 106.0 mm/Hg (80-100) H 06/29/17 11:35 HCO3 32.7 mmol/L (21-28) H 06/29/17 11:35 ABG pH 7.33 (7.35-7.45) L 06/29/17 11:35 ABG Total CO2 34.6 mmol.L (22-28) H 06/29/17 11:35 ABG O2 Saturation 99.0 % (95-98) H 06/29/17 11:35 ABG O2 Content 13.9 ML/dl (15-23) L 06/29/17 11:35 ABG Base Excess 5.4 mmol/L (-2.0-3.0) H 06/29/17 11:35 ABG Hemoglobin 10.2 g/dL (11.7-17.4) L 06/29/17 11:35 ABG Carboxyhemoglobin 1.6 % (0.5-1.5) H 06/29/17 11:35 POC ABG HHb (Measured) 1.0 % (0-5) 06/29/17 11:35 ABG Methemoglobin 1.4 % (0.0-3.0) 06/29/17 11:35 ABG O2 Capacity 14.0 mL/dl (16-24) L 06/29/17 11:35 ABG Potassium 4.2 mmol/L (3.6-5.2) 06/26/17 11:55 Hgb O2 Saturation 95.9 % (95.0-98.0) 06/29/17 11:35 Sodium 142.0 mmol/L (132-148) 06/26/17 11:55 Chloride 109.0 mmol/L (98-107) H 06/26/17 11:55 Glucose 134 mg/dl (75-110) H 06/26/17 11:55 Lactate 0.8 mmol/L (0.7-2.1) 06/26/17 11:55 FiO2 32.0 % 06/29/17 11:35 Sodium 141 mmol/L (132-148) 06/30/17 05:30 Potassium 4.6 mmol/L (3.6-5.0) 06/30/17 05:30 Chloride 102 mmol/L (98-107) 06/30/17 05:30 Carbon Dioxide 36 mmol/L (21-33) H 06/30/17 05:30 Anion Gap 8 (10-20) L 06/30/17 05:30 BUN 49 mg/dL (7-21) H 06/30/17 05:30 Creatinine 1.2 mg/dl (0.8-1.5) 06/30/17 05:30 Est GFR ( Amer) > 60 06/30/17 05:30 Est GFR (Non-Af Amer) 57 06/30/17 05:30 Random Glucose 139 mg/dL (70-110) H 06/30/17 05:30 Calcium 8.7 mg/dL (8.4-10.5) 06/30/17 05:30 Phosphorus 3.3 mg/dL (2.5-4.5) 06/27/17 06:30 Magnesium 2.0 mg/dL (1.7-2.2) 06/27/17 06:30 Total Bilirubin 0.1 mg/dL (0.2-1.3) L 06/30/17 05:30 AST 40 U/L (17-59) 06/30/17 05:30 ALT 50 U/L (7-56) 06/30/17 05:30 Alkaline Phosphatase 51 U/L (38-126) 06/30/17 05:30 Lactate Dehydrogenase 647 U/L (333-699) 06/26/17 22:45 Total Creatine Kinase 76 U/L (35-230) 06/26/17 19:18 Troponin I < 0.01 ng/mL 06/29/17 02:05 C-Reactive Protein 19.50 mg/L (0.0-9.9) H 06/26/17 22:45 NT-Pro-B Natriuret Pep 364 pg/mL (0-450) 06/26/17 19:18 Total Protein 6.3 g/dL (5.8-8.3) 06/30/17 05:30 Albumin 3.1 g/dL (3.0-4.8) 06/30/17 05:30 Globulin 3.2 gm/dL 06/30/17 05:30 Albumin/Globulin Ratio 1.0 (1.1-1.8) L 06/30/17 05:30 Procalcitonin < 0.05 NG/ML (0.19-0.49) L 06/26/17 22:40 Arterial Blood Potassium 4.2 mmol/L (3.6-5.2) 06/26/17 11:55 Urine Color Yellow (YELLOW) 06/27/17 02:00 Urine Appearance Sl cloudy (CLEAR) 06/27/17 02:00 Urine pH 5.5 (4.7-8.0) 06/27/17 02:00 Ur Specific [place] 1.015 (1.005-1.035) 06/27/17 02:00 Urine Protein 100 mg/dL (<30 mg/dL) H 06/27/17 02:00 Urine Glucose (UA) Negative mg/dL (NEGATIVE) 06/27/17 02:00 Urine Ketones 15 mg/dL (NEGATIVE) H 06/27/17 02:00 Urine Blood Large (NEGATIVE) H 06/27/17 02:00 Urine Nitrate Negative (NEGATIVE) 06/27/17 02:00 Urine Bilirubin Negative (NEGATIVE) 06/27/17 02:00 Urine Urobilinogen 0.2 E.U./dL (<1 E.U./dL) 06/27/17 02:00 Ur Leukocyte Esterase Negative Gómez/uL (NEGATIVE) 06/27/17 02:00 Urine RBC Tntc /hpf (0-2) 06/27/17 02:00 Urine WBC 1 - 3 /hpf (0-6) 06/27/17 02:00 Ur Epithelial Cells 0 - 2 /hpf (0-5) 06/27/17 02:00 Urine Bacteria Few (NEG) 06/27/17 02:00 CMV IgG Ab >10.00 U/mL H 06/27/17 06:30 CMV IgM Ab <30.00 AU/mL 06/27/17 06:30 Ur L.pneumophila Ag Negative (NEGATIVE) 06/27/17 02:00 - Hospital Course Hospital Course: History of Present Illness: Pt is an 86 yo M with PMH of CVA, CAD, and asthma presents to [facility] due to a one day history of worsening shortness of breath. Pt is Divehi speaking, family is at bedside to provide translation. Pt states that at rest he is not short of breath, but can only walk a few steps before becoming short of breath. Pt is on 2L of oxygen at home. Pt states that he occasionally has night time symptoms of dyspnea and cough, but not daily. Pt states that over the last day the dyspnea has worsened and has had a dry cough. Pt denied any recent travel or sick contacts. Pt's last admission to a healthcare facility was about 1 year ago at [facility] for pneumonia and asthma exacerbation. Pt denied CP, n /v/d, abdominal pain, fever, chills, PRIDE, dizziness, urinary symptoms or changes in BM. Hospital Course: Patient was admitted with COPD exacerbation with possible superimposed pneumonia. ABG on admission consistent with CO2 retention. CT chest findings were negative for PE, severe emphysematous changes bilaterally, small consolidation within right lower lobe, scattered lung nodules, the largest is 1.3cm within the left lower lobe (see full report). Echo showed LVEF of 74%, mild septal hypokinesis, and mild pulmonary hypertension. Patient was started on IV Solumedrol, duonebs, singulair. Pulmonary was consulted. For pneumonia, patient was started on IV Rocephin and Zithromax. Rapid response was called on 06/29/17 for respiratory distress. Patient was placed on bipap and was given STAT dose of IV solumedrol. ABG at that time continued to show CO2 retention. Blood Cultures, urine cultures has been negative, procalcitonin was low, patient was afebrile. There was Leukocytosis possibly secondary to steroid use, decreasing appropriately. Will discontinue antibiotics. Lisinopril 2.5mg PO daily was added for hypertension. IV solumedrol was switched to PO prednisone. Patient to continue prednisone taper. Patient was evaluated by physical therapy and recommend disposition home with services. Patient is stable for discharge home. Patient to follow up with PMD within 1-2 weeks for followup. Medications reconciled. Mr De La Cruz has Chronic Respiratory Failure due to severe COPD. Patient has been having trouble tolerating the Bipap and complains of symptoms parallel to breath stacking. Plan is to discontinue the use of the Bipap as it has been proven insufficient and order Non-invasive Ventilation to target volume control and reduce the elevated PCO2 levels that the patient has been experiencing on Bipap. Without Non-invasive ventilation the patient might endure additional hospital admissions or even a life threatening event. Plan has been discussed with the patient. Discharge Exam - Head Exam Head Exam: NORMAL INSPECTION - Eye Exam Eye Exam: EOMI, Normal appearance Pupil Exam: NORMAL ACCOMODATION - Respiratory Exam Respiratory Exam: Decreased Breath Sounds, Rhonchi. absent: Respiratory Distress, NORMAL BREATHING PATTERN - Cardiovascular Exam Cardiovascular Exam: REGULAR RHYTHM, +S1, +S2 - GI/Abdominal Exam GI & Abdominal Exam: Normal Bowel Sounds, Soft. absent: Guarding, Rebound, Rigid, Tenderness - Extremities Exam Extremities exam: normal inspection, pedal pulses present - Neurological Exam Neurological exam: Alert, Oriented x3 - Psychiatric Exam Psychiatric exam: Normal Affect, Normal Mood - Skin Skin Exam: Dry, Normal Color, Warm Discharge Plan - Discharge Medications Prescriptions: Albuterol/Ipratropium [Duoneb 3 mg/0.5 mg (3 ml) UD] 3 ml IH Q4 PRN 30 Days # 120 neb PRN Reason: Shortness Of Breath Arformoterol [Brovana] 15 mcg IH [id number] #60 neb Lisinopril [Zestril] 2.5 mg PO DAILY #30 tab predniSONE [Prednisone] See Taper PO DAILY #5 tab - Follow Up Plan Condition: UNKNOWN Disposition: HOME/ ROUTINE Additional Instructions: 1. Please continue medications as prescribed 2. Continue prednisone taper as instructed 3. Please follow up with PMD within 1-2 weeks of discharge 4. If having any worsening of symptoms, please return to ED Referrals: Leticia Gusman MD [Primary Care Provider] - <Waldemar Montez - Last Filed: 06/30/17 13:55> Provider - Provider Date of Admission: 06/26/17 21:55 Attending physician: Waldemar Montez MD Primary care physician: Leticia Gusman MD Hospital Course - Lab Results Lab Results: Micro Results 06/26/17 22:24 Blood Blood Culture - Preliminary NO GROWTH AFTER 3 DAYS 06/26/17 22:05 Blood Blood Culture - Preliminary NO GROWTH AFTER 3 DAYS 06/28/17 00:25 Urine,Clean Catch Urine Culture - Final No Growth (<1,000 CFU/ML) Most Recent Lab Values WBC 11.6 10^3/ul (4.5-11.0) H D 06/30/17 05:30 RBC 3.90 10^6/uL (3.5-6.1) 06/30/17 05:30 Hgb 9.9 g/dL (14.0-18.0) L 06/30/17 05:30 Hct 34.0 % (42.0-52.0) L 06/30/17 05:30 MCV 87.2 fl (80.0-105.0) 06/30/17 05:30 MCH 25.4 pg (25.0-35.0) 06/30/17 05:30 MCHC 29.1 g/dl (31.0-37.0) L 06/30/17 05:30 RDW 14.2 % (11.5-14.5) 06/30/17 05:30 Plt Count 250 10^3/uL (120.0-450.0) 06/30/17 05:30 MPV 11.0 fl (7.0-11.0) 06/30/17 05:30 Gran % 76.1 % (50.0-68.0) H 06/26/17 19:18 Lymph % (Auto) 13.3 % (22.0-35.0) L 06/26/17 19:18 Pike % (Auto) 9.7 % (1.0-6.0) H 06/26/17 19:18 Eos % (Auto) 0.6 % (1.5-5.0) L 06/26/17 19:18 Baso % (Auto) 0.3 % (0.0-3.0) 06/26/17 19:18 Gran # 5.09 (1.4-6.5) 06/26/17 19:18 Lymph # (Auto) 0.9 (1.2-3.4) L 06/26/17 19:18 Pike # (Auto) 0.7 (0.1-0.6) H 06/26/17 19:18 Eos # (Auto) 0.0 (0.0-0.7) 06/26/17 19:18 Baso # (Auto) 0.02 K/mm3 (0.0-2.0) 06/26/17 19:18 ESR 40 mm/hr (0.00-15.0) H 06/26/17 22:40 PT 11.9 SECONDS (9.4-12.5) 06/26/17 19:18 INR 1.04 (0.93-1.08) 06/26/17 19:18 APTT 26.2 Seconds (25.1-36.5) 06/26/17 19:18 pCO2 62 mm/Hg (35-45) H 06/29/17 11:35 pO2 106.0 mm/Hg (80-100) H 06/29/17 11:35 HCO3 32.7 mmol/L (21-28) H 06/29/17 11:35 ABG pH 7.33 (7.35-7.45) L 06/29/17 11:35 ABG Total CO2 34.6 mmol.L (22-28) H 06/29/17 11:35 ABG O2 Saturation 99.0 % (95-98) H 06/29/17 11:35 ABG O2 Content 13.9 ML/dl (15-23) L 06/29/17 11:35 ABG Base Excess 5.4 mmol/L (-2.0-3.0) H 06/29/17 11:35 ABG Hemoglobin 10.2 g/dL (11.7-17.4) L 06/29/17 11:35 ABG Carboxyhemoglobin 1.6 % (0.5-1.5) H 06/29/17 11:35 POC ABG HHb (Measured) 1.0 % (0-5) 06/29/17 11:35 ABG Methemoglobin 1.4 % (0.0-3.0) 06/29/17 11:35 ABG O2 Capacity 14.0 mL/dl (16-24) L 06/29/17 11:35 ABG Potassium 4.2 mmol/L (3.6-5.2) 06/26/17 11:55 Hgb O2 Saturation 95.9 % (95.0-98.0) 06/29/17 11:35 Sodium 142.0 mmol/L (132-148) 06/26/17 11:55 Chloride 109.0 mmol/L (98-107) H 06/26/17 11:55 Glucose 134 mg/dl (75-110) H 06/26/17 11:55 Lactate 0.8 mmol/L (0.7-2.1) 06/26/17 11:55 FiO2 32.0 % 06/29/17 11:35 Sodium 141 mmol/L (132-148) 06/30/17 05:30 Potassium 4.6 mmol/L (3.6-5.0) 06/30/17 05:30 Chloride 102 mmol/L (98-107) 06/30/17 05:30 Carbon Dioxide 36 mmol/L (21-33) H 06/30/17 05:30 Anion Gap 8 (10-20) L 06/30/17 05:30 BUN 49 mg/dL (7-21) H 06/30/17 05:30 Creatinine 1.2 mg/dl (0.8-1.5) 06/30/17 05:30 Est GFR ( Amer) > 60 06/30/17 05:30 Est GFR (Non-Af Amer) 57 06/30/17 05:30 Random Glucose 139 mg/dL (70-110) H 06/30/17 05:30 Calcium 8.7 mg/dL (8.4-10.5) 06/30/17 05:30 Phosphorus 3.3 mg/dL (2.5-4.5) 06/27/17 06:30 Magnesium 2.0 mg/dL (1.7-2.2) 06/27/17 06:30 Total Bilirubin 0.1 mg/dL (0.2-1.3) L 06/30/17 05:30 AST 40 U/L (17-59) 06/30/17 05:30 ALT 50 U/L (7-56) 06/30/17 05:30 Alkaline Phosphatase 51 U/L (38-126) 06/30/17 05:30 Lactate Dehydrogenase 647 U/L (333-699) 06/26/17 22:45 Total Creatine Kinase 76 U/L (35-230) 06/26/17 19:18 Troponin I < 0.01 ng/mL 06/29/17 02:05 C-Reactive Protein 19.50 mg/L (0.0-9.9) H 06/26/17 22:45 NT-Pro-B Natriuret Pep 364 pg/mL (0-450) 06/26/17 19:18 Total Protein 6.3 g/dL (5.8-8.3) 06/30/17 05:30 Albumin 3.1 g/dL (3.0-4.8) 06/30/17 05:30 Globulin 3.2 gm/dL 06/30/17 05:30 Albumin/Globulin Ratio 1.0 (1.1-1.8) L 06/30/17 05:30 Procalcitonin < 0.05 NG/ML (0.19-0.49) L 06/26/17 22:40 Arterial Blood Potassium 4.2 mmol/L (3.6-5.2) 06/26/17 11:55 Urine Color Yellow (YELLOW) 06/27/17 02:00 Urine Appearance Sl cloudy (CLEAR) 06/27/17 02:00 Urine pH 5.5 (4.7-8.0) 06/27/17 02:00 Ur Specific [place] 1.015 (1.005-1.035) 06/27/17 02:00 Urine Protein 100 mg/dL (<30 mg/dL) H 06/27/17 02:00 Urine Glucose (UA) Negative mg/dL (NEGATIVE) 06/27/17 02:00 Urine Ketones 15 mg/dL (NEGATIVE) H 06/27/17 02:00 Urine Blood Large (NEGATIVE) H 06/27/17 02:00 Urine Nitrate Negative (NEGATIVE) 06/27/17 02:00 Urine Bilirubin Negative (NEGATIVE) 06/27/17 02:00 Urine Urobilinogen 0.2 E.U./dL (<1 E.U./dL) 06/27/17 02:00 Ur Leukocyte Esterase Negative Gómez/uL (NEGATIVE) 06/27/17 02:00 Urine RBC Tntc /hpf (0-2) 06/27/17 02:00 Urine WBC 1 - 3 /hpf (0-6) 06/27/17 02:00 Ur Epithelial Cells 0 - 2 /hpf (0-5) 06/27/17 02:00 Urine Bacteria Few (NEG) 06/27/17 02:00 CMV IgG Ab >10.00 U/mL H 06/27/17 06:30 CMV IgM Ab <30.00 AU/mL 06/27/17 06:30 Ur L.pneumophila Ag Negative (NEGATIVE) 06/27/17 02:00 Attending/Attestation - Attestation I have personally seen and examined this patient.: Yes I have fully participated in the care of the patient.: Yes I have reviewed all pertinent clinical information, including history, physical exam and plan: Yes Notes (Text): 06/30/17 13:53 86 year old male with past medical history of CVA, CAD and COPD who presented with respiratory distress secondary to COPD exacerbation. Symptoms improved with iv steroids and bipap. He was seen by pulmonary and palliative care as above. CT lung and liver findings discussed with family who did not wish for addition workup. Patient is discharged home to follow up with his pmd. Follow up with gardener florist. He is on tapering steroids for COPD and lisinopril for hypertension. Waldemar Montez MD Hospitalist.
[2017-07-01 00:48] LABS: INTERPRETATION PAST INFECTION
--- NOTE | 2017-07-01 11:16 | CARD ---
APPROVED REPORT EKG Measurement Heart [id number] <Conclusion> Sinus tachycardia PRWP Possible ASMI, age unknown
== END 2017-06-30 16:31 | disposition home or self-care (01) | DRG 190 ==
LOC: ED 18:51 → ERH 21:55 → 2RNO 23:48
PROVIDERS: ADMIT Internal Medicine; ATTEND Internal Medicine
PROC: 5A09457 Assistance with Respiratory Ventilation, 24-96 Consecutive Hours, Continuous Positive Airway Pressure (ICD-10-PCS; principal; 2017-06-28)
DX: J44.1 Chronic obstructive pulmonary disease with (acute) exacerbation (principal); J96.92 Respiratory failure, unspecified with hypercapnia; J45.901 Unspecified asthma with (acute) exacerbation; E87.0 Hyperosmolality and hypernatremia; R64 Cachexia; Z68.1 Body mass index [BMI] 19.9 or less, adult; I25.10 Atherosclerotic heart disease of native coronary artery without angina pectoris; E86.0 Dehydration; I12.9 Hypertensive chronic kidney disease with stage 1 through stage 4 chronic kidney disease, or unspecified chronic kidney disease; N18.9 Chronic kidney disease, unspecified; M62.50 Muscle wasting and atrophy, not elsewhere classified, unspecified site; I27.20 Pulmonary hypertension, unspecified; R91.1 Solitary pulmonary nodule; K76.9 Liver disease, unspecified; Z66 Do not resuscitate; Z99.81 Dependence on supplemental oxygen; Z87.891 Personal history of nicotine dependence; Z95.1 Presence of aortocoronary bypass graft; Z86.73 Personal history of transient ischemic attack (TIA), and cerebral infarction without residual deficits

== ENCOUNTER 2017-07-08 15:06 | Emergency (ER) | payer MEDICARE, MEDICAID ==
--- NOTE | 2017-07-08 15:49 | ED PDOC ---
Arrival/HPI - General Chief Complaint: Cardiac Arrest Time Seen by Provider: 07/08/17 15:31 Historian: Family (Primarily Turkmen speaking. History translated through patients sons Alanna and Santos) - Critical Care Critical Care Minutes: 60 minutes - History of Present Illness Narrative History of Present Illness (Text): 07/08/17 15:34 A 86 year old male, whose past medical history includes asthma, COPD, CABG and CVA, brought into the emergency department by EMS as cardiac arrest. Family reports patient suddenly began to experience shortness of breath today, similar to prior COPD exacerbations. Patient was found unresponsive upon EMS arrival. Patient was DNR/DNI, however family resended DNR/DNI status. EMS continues to perform ACLS protocol. Patient was intubated and had 9 rounds of epi. EMS regained pulse twice but patient went to asytole. EMS worked on patient for a total of 40 minutes. ACLS continued upon arrival to the emergency room, patient received an additional 5 rounds of epi and tube placement confirmed with good CO2 detector and color condensation. HPI and ROS limited. PMD: Dr. 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) Context: Home Past Medical History - Provider Review Nursing Documentation Reviewed: Yes - Infectious Disease Hx of Infectious Diseases: None - Cardiac Hx Hypertension: Yes - Pulmonary Hx Asthma: Yes - Musculoskeletal/Rheumatological Hx Falls: No - Psychiatric Hx Substance Use: No Family/Social History - Physician Review Nursing Documentation Reviewed: Yes Family/Social History: No Known Family HX Smoking Status: Former Smoker Hx Alcohol Use: No Hx Substance Use: No Allergies/Home Meds Allergies/Adverse Reactions: Allergies No Known Allergies Allergy (Verified 07/08/17 15:19) Home Medications: Home Meds Medication Instructions Recorded Confirmed Atorvastatin [Lipitor] 10 mg PO DAILY 06/26/17 06/26/17 Fluticasone/Vilanterol [Breo 1 in IH BID 06/26/17 06/26/17 Ellipta 200-25 Mcg INH] Metoprolol Tartrate 25 mg PO BID 06/26/17 06/26/17 Montelukast [Singulair] 10 mg PO DAILY 06/26/17 06/26/17 Multivitamin/Iron/Folic Acid 1 tab PO DAILY 06/26/17 06/26/17 [Sentry Tablet] Review of Systems - Review of Systems Systems not reviewed;Unavailable: Acuity of Condition Physical Exam Pulse: Pulseless Respiratory Rate: Mechanically Ventilated Appearance: Positive for: Ill-Appearing Mental Status: Positive for: Comatose - Systems Exam Head: Present: Atraumatic, Normocephalic Pupils: Present: Non-Reactive Conjunctiva: Present: Normal Mouth: Present: Other (ETT) Nose (External): Present: Atraumatic Respiratory/Chest: Present: Good Air Exchange (Patient is intubated, bilateral breath sounds present), Rhonchi, Other (BVM). No: Respiratory Distress, Accessory Muscle Use Upper Extremity: Present: Normal Inspection Lower Extremity: Present: Normal Inspection. No: Edema Neurological: No: Motor Func Grossly Intact, Normal Sensory Function, Other ( corneal reflex) Skin: Present: Other (cyanotic) Medical Decision Making ED Course and Treatment: 07/08/17 15:34 Impression: A 86 year old male brought in for cardiac arrest Progress Notes: Patient treated immediately with ACLS protocol. ETT checked by me with good condensation, color change and b/l breathe songs. Central line emergently was attepted by Resident Herminia michaels with no success. Good peripheral IV access already. See RN note for medications given. No pulse appreciated in the ED after several round of epi in addition to the 40 min treatment in the field by EMS. Time of at 15:22. Spoke with patients Gabriela De La Cruz, sons Michelle De La Cruz and Santos De La Cruz. Family is primarily Turkmen speaking, both sons present to translate for and family. grazing examiner and organ donation contacted by MACIE Davis. PMD Dr. Uzma epps, awaiting call back. 07/08/17 15:[address] Gusman, who is aware of and in agreement with plan. States he will complete certification. - Critical Care Critical Care Minutes: 60 minutes - Scribe Statement The provider has reviewed the documentation as recorded by the Scribe Alpa Spencer Provider Scribe Attestation: All medical record entries made by the Scribe were at my direction and personally dictated by me. I have reviewed the chart and agree that the record accurately reflects my personal performance of the history, physical exam, medical decision making, and the department course for this patient. I have also personally directed, reviewed, and agree with the discharge instructions and disposition. Disposition/Present on Arrival - Present on Arrival Any Indicators Present on Arrival: No History of DVT/PE: No History of Uncontrolled Diabetes: No Urinary Catheter: No History of Decub. Ulcer: No History Surgical Site Infection Following: None - Disposition Have Diagnosis and Disposition been Completed?: Yes Diagnosis: Cardiac arrest Disposition: WITH WITHOUT AUTOPSY Disposition Time: 15:22 Condition: Referrals: [facility] Profile Req, [Non-Staff] - Follow up with primary Forms: UCAN (Guatemalan)
--- NOTE | 2017-07-08 16:22 | PCM.PROC ---
Procedures Attestation:: I certify that I have explained the specified Operation(s) or Procedure(s), risks, benefits and reasonable alternatives to the Patient and/or other person responsible. The opportunity was given to ask questions and all questions answered - Central Line Placement Right Femoral Triple Lumen Catheter Aseptic technique was employed throughout the procedure: Hand Hygiene done prior to procedure, Full sterile barriers (mask, hair cover, sterile gown, sterile gloves) CVP Time Out Performed: Yes Central Line Prep: Chlorhexidine-Alcohol Combination Ultrasound Used for Placement: No Central Line Lumen Inserted: triple Additional Comments: No written consent obtained. Implied consent during emergency situation. Procedure attempting during code blue. Patient prior to placement of catheter.
== END 2017-07-08 16:54 ==
LOC: ED 15:06
DX: I46.9 Cardiac arrest, cause unspecified (principal); Z66 Do not resuscitate